=== PATIENT | female | born 1930 | race Caucasian/White ===

== ENCOUNTER 2016-05-28 10:36 | Emergency (ER) | payer OTHER ==
--- NOTE | 2016-05-28 11:34 | PROVIDER DOCUMENTATION ---
HPI-Musculoskeletal Pain/Inj - GENERAL Chief Complaint: Weakness Stated Complaint: right arm numbness Time Seen by Provider: 05/28/16 11:03 Source: patient - HX OF PRESENT ILLNESS-MUSKULOSKELTAL Nature of Presenting Problem: Pt is 85 y/o F presents to the ED with R wrist pain. Pt states pain radiates up R arm. Pt denies injury or trauma. Pt states pain has been presents for 2 days but worsened last night. Quality of Pain: reports: aching Severity in ED: mild Onset/Duration: 2 days ago, last night (worse) Timing: still present Modifying Factors: improves with: nothing Any recent injury?: No Locality of Occurance: Home Similar Symptoms Previously?: Yes Recently seen or treated by another doctor?: No - FALL INJURY Location of Pain/Injury: reports: none - UPPER EXTREMITY PAIN/INJURY Extremities Pain Location: wrist: right (pain ) Context / Method of Injury: reports: unknown Associated Symptoms: reports: numbness in upper ext (R arm), weakness in upper ext (R arm). denies: muscle spasms, sensory/motor loss, tingling in upper ext Review of Systems - Adult - REVIEW OF SYSTEMS - ADULT Constitutional: denies: chills, fever Eyes: denies: blurred vision, double vision Ears, Nose, Mouth & Throat: denies: ear pain, nose pain, throat pain Cardiovascular: denies: chest pain, heart murmur, irregular heart rate Respiratory: denies: cough, shortness of breath, wheezing Gastrointestinal: denies: abdominal pain, diarrhea, nausea, vomiting Genitourinary: denies: dysuria, hematuria Musculoskeletal: reports: other (R wrist pain). denies: bone pain, joint pain, neck pain Integumentary: denies: hives, itching Neurological: denies: dizziness/vertigo, headache/migraines Psychiatric: reports: no symptoms reported Endocrine: reports: no symptoms reported Hematologic/Lymphatic: reports: no symptoms reported Allergic/Immunologic: reports: no symptoms reported All Other Systems: Reviewed and Negative Past History - Adult - PAST MEDICAL HISTORY-ADULT Review of Records: reports: Nursing Assessment Review, Medications Reviewed, Social history reviewed & non-contributory. Major Childhood Illnesses: reports: denies history Cardiovascular: reports: cardiac disease, A-Fib, HTN, [place], pacemaker Respiratory: reports: COPD, pneumonia Gastrointestinal: reports: GERD Obstetrical/Gynecological: reports: denies history Genitourinary: reports: denies history Musculoskeletal: reports: denies history Neurological: reports: CVA Endocrine/Immune: reports: Diabetes, thyroid disorder Other Conditions: reports: denies history - PRIOR SURGERIES/PROCEDURES Surgical/Procedure History: reports: CABG, pacemaker, hysterectomy, other ( heart cath ) - IMMUNIZATION STATUS Childhood Immunizations: See Nurse Assessment Flu Vaccine: See Nurse Assessment - FAMILY HISTORY Family History: reviewed, not pertinent - SOCIAL HISTORY Smoking: denies Substance Use: denies Living Situation: care facility (detention) Physical Exam-Injury Related - Physical Exam-Injury Related Initial Vital Signs Reviewed: Yes General Appearance: appears well, alert, no apparent distress Eyes: PERRL/EOMI, pink conjunctivae, fundi clear, no AV nicking Head, Ears, Nose, Mouth & Throat: normocephalic/atraumatic, moist mucous membranes, normal ENT inspection, TMs normal, pharynx normal Neck: non-tender, full range of motion, supple, normal inspection Respiratory: chest non-tender, lungs clear, normal breath sounds, no pleuratic chest pain, no respiratory distress, no accessory muscle use Cardiovascular: normal peripheral pulses, regular rate, rhythm, no edema, no gallop, no JVD, no murmur Abdominal Exam: normal bowel sounds, non tender, soft, no organomegaly, no pulsatile mass Lymphatic: no adenopathy Back Exam: normal inspection, no CVA tenderness, no vertebral tenderness Extremity: normal gait, no pedal edema, no calf tenderness, swelling (R wrist) , tenderness (R wrist tenderness). negative: normal range of motion (limited ROM) Integumentary: normal color, warm/dry, erythema (R wrist) Neurologic: cashier ticket selling II-XII nml as tested, grossly normal, no motor/sensory deficits Psych/Mental Status: normal mood/affect, normal thought content, normal thought process, oriented x 3 Progress - PLAN OF CARE/RESULTS Progress/Plan/Lab Results: Orders Category Date Time Status CHEST-2 VIEWS [RAD] Stat Exams 05/28/16 11:05 Taken CBC WITH DIFF [HEME] Stat Lab 05/28/16 11:04 Ordered COMPREHENSIVE METABOLIC PANEL [CHEM] Stat Lab 05/28/16 11:05 Ordered SED RATE [HEME] Stat Lab 05/28/16 11:05 Ordered TROPONIN T Stat Lab 05/28/16 11:05 Ordered EKG [EKG] Stat Ther 05/28/16 11:05 Ordered Vital Signs - 24 hr 05/28/16 10:39 Temperature 97.9 F Pulse Rate 65 Respiratory 12 Rate Blood Pressure 138/109 O2 Sat by Pulse 99 Oximetry Laboratory Tests 05/28/16 11:37 WBC 10.74 RBC 4.89 Hgb 13.9 Hct 42.2 MCV 86.3 MCH 28.4 MCHC 32.9 L RDW Std Deviation 13.9 Plt Count 192 MPV 10.7 H Immature Gran % (Auto) 0.4 Neut % (Auto) 64.7 Lymph % (Auto) 25.2 [place] % (Auto) 8.4 Eos % (Auto) 1.1 Baso % (Auto) 0.2 Immature Gran # (Auto) 0.04 Neut # (Auto) 6.95 H Lymph # (Auto) 2.71 [place] # (Auto) 0.90 H Eos # (Auto) 0.12 Baso # (Auto) 0.02 Laboratory Tests 05/28/16 05/28/16 05/28/16 11:37 11:37 11:37 WBC 10.74 RBC 4.89 Hgb 13.9 Hct 42.2 MCV 86.3 MCH 28.4 MCHC 32.9 L RDW Std Deviation 13.9 Plt Count 192 MPV 10.7 H Immature Gran % (Auto) 0.4 Neut % (Auto) 64.7 Lymph % (Auto) 25.2 [place] % (Auto) 8.4 Eos % (Auto) 1.1 Baso % (Auto) 0.2 Immature Gran # (Auto) 0.04 Neut # (Auto) 6.95 H Lymph # (Auto) 2.71 [place] # (Auto) 0.90 H Eos # (Auto) 0.12 Baso # (Auto) 0.02 Sodium 140 Potassium 3.6 Chloride 100 Carbon Dioxide 31 Anion Gap 9 BUN 22 Creatinine 1.2 H Estimated GFR/1.73 m2 42 BUN/Creatinine Ratio 18 Glucose 190 H Calculated Osmolality 288 Calcium 9.0 Total Bilirubin 0.50 AST 15 ALT 16 Alkaline Phosphatase 57 Troponin T < 0.010 Total Protein 6.2 L Albumin 3.8 Globulin 2.0 Albumin/Globulin Ratio 2.0 Laboratory Tests 05/28/16 05/28/16 05/28/16 11:37 11:37 11:37 WBC 10.74 RBC 4.89 Hgb 13.9 Hct 42.2 MCV 86.3 MCH 28.4 MCHC 32.9 L RDW Std Deviation 13.9 Plt Count 192 MPV 10.7 H Immature Gran % (Auto) 0.4 Neut % (Auto) 64.7 Lymph % (Auto) 25.2 [place] % (Auto) 8.4 Eos % (Auto) 1.1 Baso % (Auto) 0.2 Immature Gran # (Auto) 0.04 Neut # (Auto) 6.95 H Lymph # (Auto) 2.71 [place] # (Auto) 0.90 H Eos # (Auto) 0.12 Baso # (Auto) 0.02 ESR Sodium 140 Potassium 3.6 Chloride 100 Carbon Dioxide 31 Anion Gap 9 BUN 22 Creatinine 1.2 H Estimated GFR/1.73 m2 42 BUN/Creatinine Ratio 18 Glucose 190 H Calculated Osmolality 288 Calcium 9.0 Total Bilirubin 0.50 AST 15 ALT 16 Alkaline Phosphatase 57 Troponin T < 0.010 Total Protein 6.2 L Albumin 3.8 Globulin 2.0 Albumin/Globulin Ratio 2.0 05/28/16 11:37 WBC RBC Hgb Hct MCV MCH MCHC RDW Std Deviation Plt Count MPV Immature Gran % (Auto) Neut % (Auto) Lymph % (Auto) [place] % (Auto) Eos % (Auto) Baso % (Auto) Immature Gran # (Auto) Neut # (Auto) Lymph # (Auto) [place] # (Auto) Eos # (Auto) Baso # (Auto) ESR 11 Sodium Potassium Chloride Carbon Dioxide Anion Gap BUN Creatinine Estimated GFR/1.73 m2 BUN/Creatinine Ratio Glucose Calculated Osmolality Calcium Total Bilirubin AST ALT Alkaline Phosphatase Troponin T Total Protein Albumin Globulin Albumin/Globulin Ratio Laboratory Tests 05/28/16 05/28/16 05/28/16 11:37 11:37 11:37 WBC 10.74 RBC 4.89 Hgb 13.9 Hct 42.2 MCV 86.3 MCH 28.4 MCHC 32.9 L RDW Std Deviation 13.9 Plt Count 192 MPV 10.7 H Immature Gran % (Auto) 0.4 Neut % (Auto) 64.7 Lymph % (Auto) 25.2 [place] % (Auto) 8.4 Eos % (Auto) 1.1 Baso % (Auto) 0.2 Immature Gran # (Auto) 0.04 Neut # (Auto) 6.95 H Lymph # (Auto) 2.71 [place] # (Auto) 0.90 H Eos # (Auto) 0.12 Baso # (Auto) 0.02 ESR Sodium 140 Potassium 3.6 Chloride 100 Carbon Dioxide 31 Anion Gap 9 BUN 22 Creatinine 1.2 H Estimated GFR/1.73 m2 42 BUN/Creatinine Ratio 18 Glucose 190 H Calculated Osmolality 288 Uric Acid Calcium 9.0 Total Bilirubin 0.50 AST 15 ALT 16 Alkaline Phosphatase 57 Creatine Kinase Troponin T < 0.010 Total Protein 6.2 L Albumin 3.8 Globulin 2.0 Albumin/Globulin Ratio 2.0 05/28/16 05/28/16 05/28/16 11:37 11:37 13:55 WBC RBC Hgb Hct MCV MCH MCHC RDW Std Deviation Plt Count MPV Immature Gran % (Auto) Neut % (Auto) Lymph % (Auto) [place] % (Auto) Eos % (Auto) Baso % (Auto) Immature Gran # (Auto) Neut # (Auto) Lymph # (Auto) [place] # (Auto) Eos # (Auto) Baso # (Auto) ESR 11 Sodium Potassium Chloride Carbon Dioxide Anion Gap BUN Creatinine Estimated GFR/1.73 m2 BUN/Creatinine Ratio Glucose Calculated Osmolality Uric Acid 7.4 H Calcium Total Bilirubin AST ALT Alkaline Phosphatase Creatine Kinase 33 Troponin T Total Protein Albumin Globulin Albumin/Globulin Ratio 05/28/16 13:55 WBC RBC Hgb Hct MCV MCH MCHC RDW Std Deviation Plt Count MPV Immature Gran % (Auto) Neut % (Auto) Lymph % (Auto) [place] % (Auto) Eos % (Auto) Baso % (Auto) Immature Gran # (Auto) Neut # (Auto) Lymph # (Auto) [place] # (Auto) Eos # (Auto) Baso # (Auto) ESR Sodium Potassium Chloride Carbon Dioxide Anion Gap BUN Creatinine Estimated GFR/1.73 m2 BUN/Creatinine Ratio Glucose Calculated Osmolality Uric Acid Calcium Total Bilirubin AST ALT Alkaline Phosphatase Creatine Kinase Troponin T < 0.010 Total Protein Albumin Globulin Albumin/Globulin Ratio - EKG 1 Time of EKG reading by physician:: 13:05 EKG Read and Signed by:: Francisco J Carmona EKG Interpretation (*Must complete 3 of following elements*): Abnormal Rate: 65 Rhythm: ventricular paced rhythm Comments: abnormal ECG 2 Time of EKG reading by physician:: 14:50 EKG Read and Signed by:: Francisco J Carmona EKG Interpretation (*Must complete 3 of following elements*): Abnormal Rate: 65 Rhythm: ventricular paced rhythm Comments: abnormal ECG - XRAY 1 XRAY: Bilateral XRAY Study: Chest Impression: Abnormal XRAY Interpretation: CM; pacemaker per Dr. Carmona Departure - Departure Time of Disposition Order: 17:30 DIAGNOSIS: Gout Qualifiers: Gout site: wrist Gout etiology: unspecified cause Laterality: right Chronicity : acute Qualified Code(s): M10.9 - Gout, unspecified Disposition: HOME 01 Certified Medical Emergency: Emergent Condition: Stable Additional Instructions: ED Follow Up Instructions: You have been treated by a care provider in the Emergency Department. These instructions are being provided to you so you can have an understanding of how to care for yourself upon discharge. Upon discharge from the Emergency Department, you are responsible for making arrangements for follow-up care by a physician of your choice. Take all prescribed medications as directed. Return to the Emergency Department immediately for any new or worsening symptoms. You may call the Physician Referral phone number at [phone] to obtain a list of Physicians who are taking new patients. Referrals: Boby Aguilar [Primary Care Provider] - Instructions: Musculoskeletal Pain, Gout Attestation - Scribe Verification/Attestation Scribe:: Niru Solis Acting as Scribe for:: Francisco J Carmona Scribe documention review:: This chart was documented by a scribe and accurately reflects the service the provider performed and the decisions made by the provider.
[2016-05-28 11:44] LABS: MANUAL DIFF NEEDED? NO
[2016-05-28 11:47] LABS: BASO% 0.2 % (0.0-0.8); EOS# 0.12 X1000 (0.0-0.7); EOS% 1.1 % (0.0-10.0); HEMATOCRIT 42.2 % (37.0-47.0); HEMOGLOBIN 13.9 g/dL (12.0-16.0); IMM GRAN# 0.04 X1000 (0.0-0.04); IMM GRAN% 0.4 % (0.0-0.5); LYMPH# 2.71 X1000 (1.2-3.4); LYMPH% 25.2 % (20.5-51.1); MCH 28.4 PG (27-31); MCHC 32.9 g/dL (33-37); MCV 86.3 FL (81-99); MONO% 8.4 % (1.7-9.3); MPV 10.7 FL (7.4-10.4); NEUT% 64.7 % (42.2-75.2); PLT 192 X1000 (130-400); RBC 4.89 XMIL (4.2-5.4)
[2016-05-28 12:09] LABS: ALBUMIN 3.8 g/dL (3.5-5.0); POTASSIUM 3.6 mmol/L (3.5-5.1); TOTAL BILIRUBIN 0.5 mg/dL (0.20-1.00); TOTAL PROTEIN 6.2 g/dL (6.3-8.3)
--- NOTE | 2016-05-28 13:22 | EKG Report ---
Test Performed on : 05/28/2016 1:05:10 PM Test Reason : sob Blood Pressure : / mmHG Vent. Rate : 065 BPM Atrial Rate : 068 BPM P-R Int : 000 ms QRS Dur : 180 ms QT Int : 562 ms P-R-T Axes : 000 042 108 degrees QTc Int : 584 ms Ventricular-paced rhythm Abnormal ECG When compared with ECG of 28-MAY-2016 12:58, (Unconfirmed) Electronic ventricular pacemaker has replaced Sinus rhythm. Vent. rate has decreased BY 74 BPM Unconfirmed Result
--- NOTE | 2016-05-28 13:26 | Diag Imaging Result Document ---
PROCEDURE NAME: CHEST-2 VIEWS - 05/28/2016 CHEST, 2 VIEWS: COMPARISON: 02/17/2016. FINDINGS: There is stable borderline cardiomegaly. There are prostatic mitral valve and transvenous cardiac pacemaker again seen. The lungs appear clear. There is no substantial vascular congestion, pleural effusion, or pneumothorax identified. There is old anterior wedge deformity of the L1 vertebral body noted. IMPRESSION: Stable mild cardiomegaly. No evidence of acute disease.
[2016-05-28] MEDS ORDERED: DEPO-MEDROL IM ONE (14:47)
[2016-05-28 14:48] VITALS: BP 166/81
--- NOTE | 2016-05-28 16:52 | EKG Report ---
Test Performed on : 05/28/2016 2:50:28 PM Test Reason : sob Blood Pressure : / mmHG Vent. Rate : 065 BPM Atrial Rate : 050 BPM P-R Int : 000 ms QRS Dur : 176 ms QT Int : 544 ms P-R-T Axes : 000 046 100 degrees QTc Int : 565 ms Ventricular-paced rhythm Abnormal ECG When compared with ECG of 28-MAY-2016 13:05, (Unconfirmed) No significant change was found Unconfirmed Result
== END 2016-05-28 17:20 | disposition home or self-care (01) ==
LOC: P.ED 10:36
DX: M10.9 Gout, unspecified (principal); R94.31 Abnormal electrocardiogram [ECG] [EKG]; M25.531 Pain in right wrist; M79.601 Pain in right arm; R20.0 Anesthesia of skin; M62.81 Muscle weakness (generalized); M25.431 Effusion, right wrist; L53.9 Erythematous condition, unspecified; Z79.899 Other long term (current) drug therapy; I48.91 Unspecified atrial fibrillation; I10 Essential (primary) hypertension; I25.2 Old myocardial infarction; J44.9 Chronic obstructive pulmonary disease, unspecified; E11.9 Type 2 diabetes mellitus without complications; Z79.01 Long term (current) use of anticoagulants; Z79.4 Long term (current) use of insulin; Z86.73 Personal history of transient ischemic attack (TIA), and cerebral infarction without residual deficits; Z95.1 Presence of aortocoronary bypass graft; Z95.0 Presence of cardiac pacemaker
CPT/HCPCS: 36415; 71020; 80053; 82550; 82948; 84484; 84550; 85025; 85651; 93005; 96372; J1030

== ENCOUNTER 2016-07-28 20:23 | Inpatient (IN) ==
[2016-07-28 21:03] LABS: BASO% 0.1 % (0.0-0.8); EOS# 0.03 X1000 (0.0-0.7); EOS% 0.1 % (0.0-10.0); HEMATOCRIT 36.4 % (37.0-47.0); HEMOGLOBIN 12.1 g/dL (12.0-16.0); IMM GRAN# 0.09 X1000 (0.0-0.04); IMM GRAN% 0.4 % (0.0-0.5); LYMPH# 1.55 X1000 (1.2-3.4); LYMPH% 7.7 % (20.5-51.1); MANUAL DIFF NEEDED? YES; MCHC 33.2 g/dL (33-37); MCV 87.3 FL (81-99); MONO# 1.51 X1000 (0.11-0.59); MONO% 7.5 % (1.7-9.3); MPV 11.1 FL (7.4-10.4); NEUT% 84.2 % (42.2-75.2); PLT 215 X1000 (130-400); RBC 4.17 XMIL (4.2-5.4)
[2016-07-28] MEDS ORDERED: DUONEB (A & A) INH ONE (21:03)
--- NOTE | 2016-07-28 21:09 | PROVIDER DOCUMENTATION ---
HPI-Respiratory General - General Chief Complaint: Shortness of Breath Stated Complaint: COUGH,SOB Time Seen by Provider: 07/28/16 20:40 Source: patient Allergies/Adverse Reactions: Patient Allergies Allergy/AdvReac Type Severity Reaction Status Date / Time Iodinated Contrast Media - Allergy Severe ANAPHYLAXIS Verified 07/28/16 20:30 Oral and codeine [Codeine] Allergy Mild NAUSEA/VOMI Verified 07/28/16 20:30 TING Home Medications: Home Medication List Medication Instructions Recorded Confirmed Last Taken Type Acetaminophen [Tylenol] 650 mg PO Q6H PRN PRN 09/08/12 07/28/16 09/08/12 22:00 History Hydralazine [Apresoline] 100 mg PO BID 09/08/12 07/28/16 09/14/15 20:30 History 100 Rivaroxaban [Xarelto] 15 mg PO HS 01/19/13 07/28/16 09/13/15 20:30 History 15 Insulin Glargine [Lantus] 25 unit SUBQ BID 08/10/15 07/28/16 09/14/15 20:30 History 25 Insulin Lispro [Humalog] 5 unit SQ BID 08/10/15 07/28/16 09/14/15 08:30 History 5 Lactobac Cmb #3/Fos/Pantethine 1 each PO BID 08/10/15 07/28/16 09/13/15 16:30 History [Probiotic & Acidophilus Cap] 1 Trolamine Salicylate/Aloe Vera 1 applic TP DIRECTED PRN PRN 08/10/15 Unknown History [Aspercreme 10% Cream] Albuterol Sulfate Inhaler 2 puff INH Q4H PRN PRN #1 inhaler 08/14/15 07/28/16 Unknown Rx [Ventolin Hfa] Prednisone 10 mg PO DAILY #30 tablet 02/22/16 07/28/16 Unknown Rx Guaifenesin [Mucinex] 600 mg PO BID 05/28/16 07/28/16 Unknown History Loratadine [Claritin] 10 mg PO QHS #30 tablet 06/20/16 07/28/16 Unknown Rx Isosorbide Dinitrate 40 mg PO DAILY 07/28/16 07/28/16 Unknown History Sennosides/Docusate Sodium [Senna 1 tab PO BID 07/28/16 07/28/16 Unknown History S Tablet] - History of Present Illness-Resp Nature of Presenting Problem: 85 y/o WF presents to the ED with c/o cough, SOB, CP x 4-5 days. States that she is staying at [facility]. Reports cough is productive of yellow/brown mucus. Denies any other sxs. Review of Systems - Adult - REVIEW OF SYSTEMS - ADULT Constitutional: reports: no symptoms reported. denies: chills, fever Eyes: reports: no symptoms reported. denies: blurred vision, double vision Ears, Nose, Mouth & Throat: reports: no symptoms reported. denies: ear pain, nose pain Cardiovascular: reports: see HPI, chest pain. denies: palpitations Respiratory: reports: see HPI, cough, shortness of breath Gastrointestinal: reports: no symptoms reported. denies: nausea, vomiting Genitourinary: reports: no symptoms reported. denies: dysuria, frequency Musculoskeletal: reports: no symptoms reported. denies: joint pain, joint swelling Integumentary: reports: no symptoms reported. denies: nail changes, rash Neurological: reports: no symptoms reported. denies: headache/migraines, numbness, paresthesia Psychiatric: reports: no symptoms reported Endocrine: reports: no symptoms reported. denies: cold intolerance, heat intolerance Hematologic/Lymphatic: reports: no symptoms reported. denies: easy bruising, prolonged bleeding Allergic/Immunologic: reports: no symptoms reported All Other Systems: Reviewed and Negative Past History - Adult - PAST MEDICAL HISTORY-ADULT Review of Records: reports: Nursing Assessment Review, Medications Reviewed Major Childhood Illnesses: reports: denies history Cardiovascular: reports: cardiac disease, A-Fib, HTN, [place], pacemaker Respiratory: reports: COPD, pneumonia Gastrointestinal: reports: GERD Obstetrical/Gynecological: reports: denies history Genitourinary: reports: denies history Musculoskeletal: reports: denies history Neurological: reports: CVA Endocrine/Immune: reports: Diabetes, thyroid disorder Other Conditions: reports: denies history - PRIOR SURGERIES/PROCEDURES Surgical/Procedure History: reports: CABG, pacemaker, hysterectomy, other ( heart cath ) - IMMUNIZATION STATUS Childhood Immunizations: See Nurse Assessment Flu Vaccine: See Nurse Assessment - FAMILY HISTORY Family History: reviewed, not pertinent - SOCIAL HISTORY Smoking: denies Alcohol Use Frequency: never Living Situation: care facility Physical Exam-General - PHYSICAL EXAM-ADULT Initial Vital Signs Reviewed: Yes - CONSTITUTIONAL General Appearance: alert, moderate distress - EYES Eyes: pink conjunctivae - HEAD, EARS, NOSE, MOUTH & THROAT HENMT: normocephalic/atraumatic, moist mucous membranes, pharynx normal - NECK Neck: supple, normal inspection - RESPIRATORY Respiratory: decreased breath sounds, wheezing, increased rate. negative: crackles, rales, stridor - CARDIOVASCULAR Cardiovascular: regular rate, rhythm. negative: bradycardia, tachycardia - LYMPHATIC Lymphatic: no adenopathy - MUSCULOSKELETAL Back Exam: normal inspection Extremity: normal gait - SKIN Integumentary: normal color, normal turgor - NEUROLOGIC Neurologic: negative: aphasia - PSYCHIATRIC Psych/Mental Status: normal mood/affect Progress - PLAN OF CARE/RESULTS Progress/Plan/Lab Results: Vital Signs - 8 hr 07/28/16 20:25 07/28/16 21:15 07/28/16 21:50 Temperature 100.1 F H Pulse Rate 65 69 65 Respiratory Rate 20 18 22 Blood Pressure 165/90 144/87 O2 Sat by Pulse Oximetry 99 97 99 07/28/16 21:52 07/28/16 22:45 Temperature 99.2 F Pulse Rate 65 Respiratory Rate 22 Blood Pressure 123/70 O2 Sat by Pulse Oximetry 100 Laboratory Results - last 24 hr 07/28/16 07/28/16 07/28/16 20:40 20:40 20:40 WBC RBC Hgb Hct MCV MCH MCHC RDW Std Deviation Plt Count MPV Immature Gran % (Auto) Neut % (Auto) Lymph % (Auto) [place] % (Auto) Eos % (Auto) Baso % (Auto) Immature Gran # (Auto) Neut # (Auto) Lymph # (Auto) [place] # (Auto) Eos # (Auto) Baso # (Auto) Segmented Neutrophils Lymphocytes Monocytes D-Dimer Sodium 135 L Potassium 3.4 L Chloride 95 L Carbon Dioxide 27 Anion Gap 13 BUN 15 Creatinine 1.0 H Estimated GFR/1.73 m2 52 BUN/Creatinine Ratio 15 Glucose 144 H Calculated Osmolality 273 Calcium 8.5 L Total Bilirubin 0.70 AST 21 ALT 21 Alkaline Phosphatase 78 Creatine Kinase Troponin T [id number] Pept 1482 H Total Protein 6.7 Albumin 3.4 L Globulin 3.0 Albumin/Globulin Ratio 1.0 Plasma Lactate 1.1 07/28/16 07/28/16 07/28/16 20:40 20:40 20:40 WBC 20.10 H RBC 4.17 L Hgb 12.1 Hct 36.4 L MCV 87.3 MCH 29.0 MCHC 33.2 RDW Std Deviation 13.0 Plt Count 215 MPV 11.1 H Immature Gran % (Auto) 0.4 Neut % (Auto) 84.2 H Lymph % (Auto) 7.7 L [place] % (Auto) 7.5 Eos % (Auto) 0.1 Baso % (Auto) 0.1 Immature Gran # (Auto) 0.09 H Neut # (Auto) 16.89 H Lymph # (Auto) 1.55 [place] # (Auto) 1.51 H Eos # (Auto) 0.03 Baso # (Auto) 0.03 Segmented Neutrophils 88 H Lymphocytes 8 L Monocytes 4 D-Dimer Sodium Potassium Chloride Carbon Dioxide Anion Gap BUN Creatinine Estimated GFR/1.73 m2 BUN/Creatinine Ratio Glucose Calculated Osmolality Calcium Total Bilirubin AST ALT Alkaline Phosphatase Creatine Kinase 129 Troponin T 0.010 Lfq-[id number]-[id number] Pept Total Protein Albumin Globulin Albumin/Globulin Ratio Plasma Lactate 07/28/16 20:40 WBC RBC Hgb Hct MCV MCH MCHC RDW Std Deviation Plt Count MPV Immature Gran % (Auto) Neut % (Auto) Lymph % (Auto) [place] % (Auto) Eos % (Auto) Baso % (Auto) Immature Gran # (Auto) Neut # (Auto) Lymph # (Auto) [place] # (Auto) Eos # (Auto) Baso # (Auto) Segmented Neutrophils Lymphocytes Monocytes D-Dimer 0.32 Sodium Potassium Chloride Carbon Dioxide Anion Gap BUN Creatinine Estimated GFR/1.73 m2 BUN/Creatinine Ratio Glucose Calculated Osmolality Calcium Total Bilirubin AST ALT Alkaline Phosphatase Creatine Kinase Troponin T Cpl-L-Iktoqlggteb Pept Total Protein Albumin Globulin Albumin/Globulin Ratio Plasma Lactate Orders Category Date Time Status Admit - [facility] Routine AdmDCTranf 07/28/16 22:38 Ordered Call Admitting on Arrival AT ADMISSION Care 07/28/16 22:40 Completed Neurological Check PRN Care 07/28/16 22:38 Active Saline Loc NOW Care 07/28/16 20:41 Active Saline Loc NOW Care 07/28/16 22:36 Completed Vital Signs Order ROUTINE Care 07/28/16 22:38 Completed Diabetic Diet Diet 07/28/16 22:40 Active CHEST-2 VIEWS [RAD] Stat Exams 07/28/16 20:41 Taken BLOOD CULTURE [BLDCUL] Stat Lab 07/28/16 20:47 Results CBC WITH DIFF [HEME] Stat Lab 07/28/16 20:40 Completed CK PROFILE [SP CHEM] Stat Lab 07/28/16 20:40 Completed COMPREHENSIVE METABOLIC PANEL [CHEM] Stat Lab 07/28/16 20:40 Completed Ddimer [D-DIMER PL] [COAG] Stat Lab 07/28/16 20:40 Completed LACTATE, PLASMA [CHEM] Stat Lab 07/28/16 20:40 Completed PRO B-NATRIURETIC PEPTIDE Stat Lab 07/28/16 20:40 Completed TROPONIN T Stat Lab 07/28/16 20:40 Completed 0.9% Sodium Chloride Inj [Ns] 1,000 ml Med 07/28/16 21:11 Active IV 75 mls/hr 0.9% Sodium Chloride Inj [Ns] 1,000 ml Med 07/28/16 22:38 Active IV 75 mls/hr Albuterol 2.5MG/Ipratrop 0.5MG [Duoneb (A & A)] Med 07/28/16 21:03 Discontinued 3 ml INH NOW ONE Albuterol 2.5MG/Ipratrop 0.5MG [Duoneb (A & A)] Med 07/28/16 23:30 Active 3 ml INH RTQ4H CefTRIAXONE 1 GM/NS [Rocephin 1 gm/Ns] Med 07/28/16 22:34 Discontinued 1 gm in 50 ml IV NOW Aerosol Treatments Routine Oth 07/28/16 21:03 Completed Aerosol Treatments Routine Oth 07/28/16 22:37 Active Aerosol Treatments Stat Oth 07/28/16 21:03 Completed Aerosol Treatments Stat Oth 07/28/16 22:37 Active Telemetry [OM.EQ] Routine Oth 07/28/16 22:38 Active Transfer/Admit Order [TRANSFER] Routine Transfer 07/28/16 22:41 Com[address] Discuss[address] pt with Dr. Woodruff; he agreed with admision Result Diagrams: 07/28/16 20:40 07/28/16 20:40 - XRAY 1 XRAY Study: Chest XRAY Interpretation: RLL infiltrate - CONSULTS/PCP/HOSPITALIST Notification #1 *Consult/PCP/Hospitalist*: Dr. best Time Discussed: 22:34 Reason/Comments: PNA, leukocytosis Consult Disposition: Admit (breathing tx and Abx) Departure - Departure Time of Disposition Decision: 22:31 DIAGNOSIS: Pulmonary fibrosis, COPD exacerbation COPD (chronic obstructive pulmonary disease) Qualifiers: COPD type: unspecified COPD Qualified Code(s): J44.9 - Chronic obstructive pulmonary disease, unspecified Disposition: ADMITTED INPATIENT 09 Certified Medical Emergency: Emergent Condition: Stable - Critical Care Note This patient required my direct & personal management of CC.: No Attestation - Physician/ PIERCE Attestation Patient care was provided by Advanced Practice Provider:: Yes Advanced Practice Provider:: Ольга Ramirez Advanced Practice Provider documentation review:: The Mid-level provider documentation, treatment plan and medical decision making was reviewed by the physician who agrees with all treatment and medical decision making by the MLP.
[2016-07-28 21:15] LABS: LYMPHS 8 % (21-51); MONO 4 % (1-9)
[2016-07-28 21:26] LABS: ALBUMIN 3.4 g/dL (3.5-5.0); CALCIUM 8.5 mg/dL (8.8-10.2); POTASSIUM 3.4 mmol/L (3.5-5.1); TOTAL BILIRUBIN 0.7 mg/dL (0.20-1.00); TOTAL PROTEIN 6.7 g/dL (6.3-8.3)
[2016-07-28] MEDS: NS 1,000 ML IV ONE (21:49)
[2016-07-28] MEDS ORDERED: ROCEPHIN 1 GM/NS 1 GM/50 ML IVPB IV ONE (22:34)
[2016-07-28] MEDS ORDERED: LEVAQUIN 750 MG in NS 150 ML IV ONE (22:34)
[2016-07-28] MEDS ORDERED: NS 1,000 ML IV ONE (22:38)
[2016-07-28] MEDS ORDERED: LEVAQUIN 750 MG/D5W 750 MG/150 ML IVPB IV ONE (23:00)
[2016-07-28] MEDS: DUONEB (A & A) INH SCH (23:59)
[2016-07-29] MEDS: NS 1,000 ML IV ONE (00:23)
[2016-07-29] MEDS: DUONEB (A & A) INH SCH ×6 (03:38→23:02)
[2016-07-29] MEDS ORDERED: ZOFRAN IV PRN ×2 (06:23→08:13)
[2016-07-29 07:31] LABS: HEMOGLOBIN 10.8 g/dL (12.0-16.0); MCHC 32.7 g/dL (33-37); MCV 88.5 FL (81-99); MPV 10.8 FL (7.4-10.4); RBC 3.73 XMIL (4.2-5.4)
[2016-07-29 07:58] LABS: ALBUMIN 3.1 g/dL (3.5-5.0); POTASSIUM 3.4 mmol/L (3.5-5.1); TOTAL BILIRUBIN 0.7 mg/dL (0.20-1.00)
[2016-07-29] MEDS ORDERED: TYLENOL PO PRN (08:13)
--- NOTE | 2016-07-29 08:19 | Diag Imaging Result Document ---
PROCEDURE NAME: CHEST-2 VIEWS - 07/28/2016 FRONTAL AND LATERAL CHEST, TWO VIEWS: COMPARISON: 06/20/2016. 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 The heart is mildly prominent. The patient has a right sided pacemaker. There are increased interstitial markings representing mild pulmonary edema or fibrosis. No pleural effusions. IMPRESSION: Stable chest.
[2016-07-29] MEDS ORDERED: INSULIN LISPRO 5 UNIT SQ SCH (09:00)
--- NOTE | 2016-07-29 09:13 | HISTORY AND PHYSICAL ---
CHIEF COMPLAINT: Cough. HISTORY OF PRESENT ILLNESS: The patient is an 85-year-old female, who presented to [facility] last night with increased cough, congestion, shortness of breath, increased work of breathing. Notes that she has been feeling tired, fatigued and sick for the past 2 or 3 days. She has had a cough with brownish sputum. She has also had a sore throat off and on for a week. States she is not on oxygen at home chronically. Her cough continued to worsen, therefore, she came to the emergency department. ALLERGIES: Iodine, codeine. MEDICATIONS: Tylenol, hydralazine 100 b.i.d., Xarelto 15 at bedtime, Lantus 25 b.i.d., Humalog 5 b.i.d., probiotics, Ventolin inhaler. Prednisone 10 daily, guaifenesin, Claritin, isosorbide. PAST MEDICAL HISTORY: Significant for diabetes, COPD, atrial fibrillation, hypertension, known coronary artery disease with a history of [place]. History of pacemaker placement. Chronic reflux. Previous history pneumonia, hypothyroidism, history of stroke. She has had a CABG and a pacemaker placement in the past. She has had a hysterectomy. REVIEW OF SYSTEMS: As noted above. The patient denies any fevers or chills, but does states that she frequently has been hot or cold. She has not checked her temperature. Has had a productive cough with greenish sputum for the last couple of days. Denies any chest pain, palpitations. Denies any headaches blurred vision, change in vision. Notes that she is chronically tired and fatigued. Denies any focalized weakness. Denies any GI or issues otherwise. PHYSICAL EXAMINATION: VITAL SIGNS: Temperature 100.1, pulse 65, respiratory rate 20, BP 165/90, saturation 99% on room air. GENERAL: The patient is awake and alert. She is oriented. Speech appears somewhat pressured. She talks very fast. Memory appears intact. HEENT: Normocephalic, atraumatic. NECK: Supple. CV: Regular rate. CHEST: Decreased breath sounds bilaterally. Positive crackles. Positive rhonchi throughout. Occasional wheezing. ABDOMEN: Soft. EXTREMITIES: Moves all extremities. No edema. NEUROLOGIC: No focal changes. LABS: WBCs initially on admission to the hospital 20, currently 18. Sodium 134, potassium 3.4, creatinine 1.0, glucose 144. BNP 1482. First set of cardiac enzymes are negative. ASSESSMENT: 1. Pneumonia. 2. Chronic obstructive pulmonary disease with mild exacerbation. 3. Hypertension. 4. Fever secondary to pneumonia. 5. Hypothyroidism. 6. Hyponatremia. 7. Hypokalemia. 8. Diabetes. PLAN: We will admit patient to the hospital. Place her on a sliding scale insulin. Continue breathing treatments. Check blood culture. Sputum culture. Place her on a diabetic diet. Azithromycin, IV fluids, Rocephin. Restart her home medications and will follow. cc: Esequiel Yuen MD
[2016-07-29] MEDS: ZITHROMAX PO SCH (09:37)
[2016-07-29] MEDS: MUCINEX PO SCH ×2 (09:37→22:04)
[2016-07-29] MEDS: APRESOLINE PO SCH ×2 (09:37→22:04)
[2016-07-29] MEDS: CULTURELLE PO SCH ×2 (09:38→22:04)
[2016-07-29] MEDS: PERICOLACE PO SCH ×2 (09:38→22:04)
[2016-07-29] MEDS: PREDNISONE PO SCH (09:38)
[2016-07-29] MEDS: ISORDIL PO SCH (09:38)
[2016-07-29] MEDS: LANTUS INSULIN (PARKWAY) SUBQ SCH ×2 (09:39→22:05)
[2016-07-29] MEDS ORDERED: DUONEB (A & A) INH SCH (11:30)
[2016-07-29] MEDS: HUMALOG DOSE (PARKWAY) SUBQ SCH ×3 (11:37→22:05)
[2016-07-29] MEDS: TYLENOL PO PRN (12:31)
[2016-07-29] MEDS ORDERED: CALMOSEPTINE OINTMENT TOP PRN (14:18)
[2016-07-29] MEDS: XARELTO PO SCH (17:37)
[2016-07-29] MEDS: CLARITIN PO SCH (22:05)
[2016-07-29] MEDS: ROCEPHIN 1 GM/NS 1 GM/50 ML IVPB IV SCH (22:22)
[2016-07-30] MEDS: DUONEB (A & A) INH SCH ×6 (02:56→22:53)
[2016-07-30] MEDS: TYLENOL PO PRN ×3 (03:05→20:36)
[2016-07-30] MEDS: HUMALOG DOSE (PARKWAY) SUBQ SCH ×4 (06:30→20:38)
[2016-07-30 06:31] LABS: HEMATOCRIT 32.2 % (37.0-47.0); HEMOGLOBIN 10.5 g/dL (12.0-16.0); MCH 28.1 PG (27-31); MCHC 32.6 g/dL (33-37); MCV 86.1 FL (81-99); MPV 11.1 FL (7.4-10.4); RBC 3.74 XMIL (4.2-5.4)
[2016-07-30 06:52] LABS: CALCIUM 8.4 mg/dL (8.8-10.2); POTASSIUM 3.2 mmol/L (3.5-5.1)
[2016-07-30] MEDS: APRESOLINE PO SCH ×2 (08:43→20:36)
[2016-07-30] MEDS: ZITHROMAX PO SCH (08:43)
[2016-07-30] MEDS: MUCINEX PO SCH (08:43)
[2016-07-30] MEDS: PREDNISONE PO SCH (08:44)
[2016-07-30] MEDS: CULTURELLE PO SCH ×2 (08:44→20:37)
[2016-07-30] MEDS: PERICOLACE PO SCH ×2 (08:44→20:37)
[2016-07-30] MEDS: ISORDIL PO SCH (08:44)
--- NOTE | 2016-07-30 11:07 | PROGRESS NOTE ---
DATE: 07/30/2016 SUBJECTIVE: Patient notes that she is having a tremendous cough. She does not want to cough this much. She states that she does not want to take breathing treatments because they make her cough. OBJECTIVE: Vital Signs: Current temperature 98, maximum temperature 101 degrees earlier this morning. Pulse 66, respiratory rate 26, blood pressure 173/66 to 150/31, saturation 100% on 2L. General: Patient is awake, alert. She is currently in no respiratory distress, but she is ill appearing, does not feel well. States that it hurts to breathe, hurts to cough. HEENT: Normocephalic, atraumatic. Neck: Supple. Cardiovascular: Regular rate. Chest: Positive wheezing. Positive crackles in left lower lobe. Positive rhonchi throughout. Decreased breath sounds, but equal bilaterally. Abdomen: Soft. Extremities: Moves all extremities. LABORATORIES: WBC 16, hemoglobin and hematocrit 10 and 30. Sodium 132, potassium 3.2, creatinine 1.1. ASSESSMENT: 1. Hypocalcemia. 2. Hyperglycemia with known diabetes. Patient's blood sugars currently are stable. Will add Solu-Medrol and continue with sliding scale to see if this will help her lungs. 3. Chronic obstructive pulmonary disease with exacerbation. 4. Pneumonia. Patient actually had a fever last night. She has only been on antibiotics 24 hours. We will not change currently; however, certainly, if her fever continues we will need to add additional antibiotics. 5. Sepsis with fever and leukocytosis. 6. Leukocytosis. 7. Pneumonia causing sepsis, left lower lobe. 8. Hyponatremia. 9. Hypokalemia. PLAN: We will continue as noted above. Patient currently is on azithromycin and Rocephin. She has continued to have fever. If her fever continues, we will need to add further antibiotics. We will try to add chest percussion therapy. Will attempt to continue breathing treatments for pulmonary toilet, but not sure if Ms. Pandey will allow this. We will add Robitussin and follow. cc: Esequiel Yuen MD
[2016-07-30] MEDS: LANTUS INSULIN (PARKWAY) SUBQ SCH ×2 (11:11→20:37)
[2016-07-30] MEDS: XARELTO PO SCH (17:01)
[2016-07-30] MEDS: DUONEB (A & A) INH PRN (17:16)
[2016-07-30] MEDS: CLARITIN PO SCH (20:36)
[2016-07-30] MEDS: ROCEPHIN 1 GM/NS 1 GM/50 ML IVPB IV SCH (23:33)
[2016-07-31] MEDS: ROBITUSSIN-DM PO PRN (00:21)
[2016-07-31] MEDS: DUONEB (A & A) INH SCH ×6 (02:59→23:03)
[2016-07-31] MEDS: CLARITIN PO SCH ×2 (04:06→22:51)
[2016-07-31] MEDS: TYLENOL PO PRN ×2 (04:36→10:58)
[2016-07-31] MEDS: HUMALOG DOSE (PARKWAY) SUBQ SCH ×4 (06:14→22:50)
[2016-07-31 06:30] LABS: CALCIUM 8.4 mg/dL (8.8-10.2); TOTAL BILIRUBIN 0.5 mg/dL (0.20-1.00); TOTAL PROTEIN 5.8 g/dL (6.3-8.3)
[2016-07-31 06:47] LABS: HEMATOCRIT 30.7 % (37.0-47.0); MCHC 32.6 g/dL (33-37); MPV 11.3 FL (7.4-10.4); RBC 3.57 XMIL (4.2-5.4)
[2016-07-31] MEDS ORDERED: KLOR-CON PO ONE (08:17)
[2016-07-31] MEDS: APRESOLINE PO SCH ×2 (09:13→22:49)
[2016-07-31] MEDS: PREDNISONE PO SCH (09:14)
[2016-07-31] MEDS: PERICOLACE PO SCH ×2 (09:14→22:49)
[2016-07-31] MEDS: ZITHROMAX PO SCH (09:14)
[2016-07-31] MEDS: CULTURELLE PO SCH ×2 (09:14→22:49)
[2016-07-31] MEDS: ISORDIL PO SCH (09:14)
[2016-07-31] MEDS: LANTUS INSULIN (PARKWAY) SUBQ SCH ×2 (09:14→22:51)
--- NOTE | 2016-07-31 11:16 | PROGRESS NOTE ---
DATE: 07/31/2016 SUBJECTIVE: The patient notes that she is feeling better. She is still having a cough, still having shortness of breath. She is not able to get out of bed secondary to her cough. She had a very productive cough this morning but was unable to completely get the sputum up. PHYSICAL EXAMINATION: Vital Signs: Temperature 98, pulse 64, respiratory rate 16, BP 159/58, saturation 96% on 2 L. General: Patient is awake, alert. She is currently in no respiratory distress. She is feeling much better. HEENT: Normocephalic. Neck: Supple. CV: Regular rate. Chest: Positive wheezing. No apparent crackles. Positive rhonchi throughout. Better air movement today than yesterday's exam. Abdomen: Soft, obese. Extremities: Moves all extremities. No edema. Neurologic: No changes. Skin: Warm and dry. No rashes. DIAGNOSTIC DATA: WBCs 11.9. Sodium 127, potassium 3, creatinine 1, glucose 129, albumin 3. ASSESSMENT: 1. Mild protein calorie malnutrition. 2. Diabetes with mild hyperglycemia. 3. Hypocalcemia. 4. Hyponatremia. 5. Hypokalemia. 6. Leukocytosis, improved. 7. Sepsis, improving. 8. Pneumonia. 9. Hypothyroidism. 10. Fever, resolved. PLAN: We will continue patient on her current antibiotics as she is improving. We will replace her potassium. We will follow her sodium levels. Encourage p.o. Continue incentive spirometry as well as good pulmonary toilet. Further orders as needed. cc: Esequiel Yuen MD
[2016-07-31] MEDS: MOTRIN PO PRN (12:12)
[2016-07-31] MEDS: XARELTO PO SCH (16:12)
[2016-07-31] MEDS: ROCEPHIN 1 GM/NS 1 GM/50 ML IVPB IV SCH (22:58)
[2016-08-01] MEDS: DUONEB (A & A) INH SCH ×6 (02:58→23:20)
[2016-08-01 06:04] LABS: HEMATOCRIT 30.2 % (37.0-47.0); HEMOGLOBIN 9.9 g/dL (12.0-16.0); MCH 28.3 PG (27-31); MCHC 32.8 g/dL (33-37); MCV 86.3 FL (81-99); RBC 3.5 XMIL (4.2-5.4)
[2016-08-01] MEDS: HUMALOG DOSE (PARKWAY) SUBQ SCH ×4 (06:12→20:59)
[2016-08-01 06:19] LABS: ALBUMIN 2.9 g/dL (3.5-5.0); CALCIUM 8.4 mg/dL (8.8-10.2); MAGNESIUM 2.4 mg/dL (1.5-2.7); POTASSIUM 3.5 mmol/L (3.5-5.1); TOTAL BILIRUBIN 0.3 mg/dL (0.20-1.00); TOTAL PROTEIN 5.7 g/dL (6.3-8.3)
--- NOTE | 2016-08-01 08:36 | PROGRESS NOTE ---
DATE: 08/01/2016 SUBJECTIVE: Patient notes she is feeling a little bit better. Still having significant cough. Still not getting out of bed due to her generalized weakness. OBJECTIVE: Vital signs: Temperature 98, pulse 65, respiratory rate 18, BP 160/40, saturation 96% on 2 L. General: Patient is awake, alert. She is lying in bed. She is comfortable. Pleasant to talk with. Neck: Supple. CV: Regular rate. Chest: Relatively clear. Positive wheezing but improved from yesterday's exam. Decreased crackles. Abdomen: Soft, obese. Extremities: Moves all extremities. LABS: WBCs 9, hemoglobin and hematocrit 9 and 30. Sodium 132, creatinine 1.0, calcium 8.4, albumin 2.9. ASSESSMENT: 1. Moderate protein calorie malnutrition. 2. Hyponatremia, improved. 3. Pneumonia, improving. 4. Chronic obstructive pulmonary disease with exacerbation and wheezing, improving. 5. Leukocytosis, resolved. 6. Diabetes. PLAN: We will continue patient on her current medications, breathing treatments, azithromycin p.o. We will continue Rocephin today. Can transition to oral antibiotics in the a.m. Hopefully home in the next 1-2 days. cc: Esequiel Yuen MD
[2016-08-01] MEDS: LANTUS INSULIN (PARKWAY) SUBQ SCH ×2 (08:46→21:00)
[2016-08-01] MEDS: ZITHROMAX PO SCH (08:46)
[2016-08-01] MEDS: PREDNISONE PO SCH (08:46)
[2016-08-01] MEDS: CULTURELLE PO SCH ×2 (08:46→21:01)
[2016-08-01] MEDS: APRESOLINE PO SCH ×2 (08:46→21:01)
[2016-08-01] MEDS: ISORDIL PO SCH (08:47)
[2016-08-01] MEDS: TYLENOL PO PRN ×2 (08:47→21:01)
[2016-08-01] MEDS: PERICOLACE PO SCH ×2 (08:47→21:00)
[2016-08-01] MEDS: XARELTO PO SCH (16:09)
[2016-08-01] MEDS: ROBITUSSIN-DM PO PRN (21:00)
[2016-08-01] MEDS: CLARITIN PO SCH (21:01)
[2016-08-02] MEDS: ROCEPHIN 1 GM/NS 1 GM/50 ML IVPB IV SCH ×2 (00:11→22:04)
[2016-08-02] MEDS: ROBITUSSIN-DM PO PRN (01:39)
[2016-08-02] MEDS: DUONEB (A & A) INH SCH ×6 (03:19→23:06)
[2016-08-02] MEDS: TYLENOL PO PRN ×3 (05:30→20:58)
[2016-08-02 06:03] LABS: HEMATOCRIT 30.6 % (37.0-47.0); HEMOGLOBIN 9.9 g/dL (12.0-16.0); MCH 28.3 PG (27-31); MCHC 32.4 g/dL (33-37); MCV 87.4 FL (81-99); MPV 10.5 FL (7.4-10.4); RBC 3.5 XMIL (4.2-5.4)
[2016-08-02 06:23] LABS: AGAP 11; ALKALINE PHOSPHATASE 95 U/L (32-104); BUN 27 mg/dL (8-22); CALCIUM 8.3 mg/dL (8.8-10.2); CHLORIDE 102 mmol/L (98-107); COSMO 277; GOT 44 U/L (10-30); GPT 42 U/L (10-36); POTASSIUM 3.7 mmol/L (3.5-5.1); SODIUM 137 mmol/L (136-145); TCO2 24 mmol/L (25-35); TOTAL PROTEIN 5.1 g/dL (6.3-8.3)
[2016-08-02] MEDS: HUMALOG DOSE (PARKWAY) SUBQ SCH ×4 (06:28→20:52)
--- NOTE | 2016-08-02 08:27 | Diag Imaging Result Document ---
PROCEDURE NAME: CHEST-2 VIEWS - 08/02/2016 CHEST, TWO VIEWS: INDICATION: Hypoxia. COMPARISON: 07/28/2016. FINDINGS: There is cardiomegaly with a prosthetic valve replacement and right sided pacemaker. There is increasing opacity left lower lobe suspicious for pneumonia. There are prominent interstitial markings suggesting mild superimposed interstitial edema. There is a left pleural effusion. There is also atelectasis or consolidation within the right middle lobe. There is an unchanged compression deformity at approximately L2. IMPRESSION: 1. Left lower lobe infiltrate and effusion suspicious for pneumonia. 2. Cardiomegaly with bilateral interstitial edema. 3. Atelectasis or consolidation, right middle lobe.
[2016-08-02] MEDS: ISORDIL PO SCH (08:50)
[2016-08-02] MEDS: LANTUS INSULIN (PARKWAY) SUBQ SCH ×2 (08:50→20:53)
[2016-08-02] MEDS: CULTURELLE PO SCH ×2 (08:50→20:52)
[2016-08-02] MEDS: PERICOLACE PO SCH ×2 (08:51→20:52)
[2016-08-02] MEDS: APRESOLINE PO SCH ×2 (08:51→20:52)
[2016-08-02] MEDS: ZITHROMAX PO SCH (08:51)
[2016-08-02] MEDS: NORVASC PO SCH ×2 (08:51→20:52)
[2016-08-02] MEDS: PREDNISONE PO SCH (08:51)
--- NOTE | 2016-08-02 12:44 | PROGRESS NOTE ---
DATE: 08/02/2016 SUBJECTIVE: This patient states that she is feeling a little bit better. She is still complaining of cough. She is still complaining about generalized weakness. OBJECTIVE: Vital Signs: Temperature 97.4 degrees, pulse 63, respiratory rate 20, blood pressure 190/60, oxygen saturation 98 on 2 L of nasal cannula. HEENT: Head normocephalic. No trauma. PERRLA. Neck: Supple. No JVD. No masses. Central trachea. Chest: Decreased breath sounds at the level of the left lower lung with rhonchi. Abdomen: Soft, obese. Extremities: She moves all 4 extremities. LABORATORY: WBC 9.5, hemoglobin 9.9, hematocrit 30.6, platelets 225,000. Sodium 137, potassium 3.7, chloride 102, BUN 27, creatinine 0.8, glucose 70, calcium 8.3. ASSESSMENT AND PLAN: 1. Left lower lung pneumonia. Continue with antibiotics. It looks like this patient is getting better. We will continue with the breathing treatment and oxygen as well. 2. Protein calorie malnutrition. Continue with the same diet. 3. Chronic obstructive pulmonary disease exacerbation. Continue with the breathing treatment, pulmonary toilet, and oxygen. This patient is on steroids as well. 4. Leukocytosis, resolved. 5. Type 2 diabetes. Continue with Lantus and sliding scale insulin. 6. History of atrial fibrillation. Continue with anticoagulation. 7. Hypertension. Her blood pressure has been high. She has been getting her home medication here and I will add amlodipine to her medications. We will monitor. cc: Mj Ortega MD
[2016-08-02] MEDS: XARELTO PO SCH (16:58)
[2016-08-02] MEDS: CLARITIN PO SCH (20:52)
[2016-08-03] MEDS: DUONEB (A & A) INH SCH ×5 (03:23→19:51)
[2016-08-03] MEDS: TYLENOL PO PRN ×2 (04:37→17:15)
[2016-08-03 06:42] LABS: MANUAL DIFF NEEDED? NO
[2016-08-03 06:52] LABS: BASO% 0.2 % (0.0-0.8); EOS# 0.11 X1000 (0.0-0.7); EOS% 1.1 % (0.0-10.0); HEMATOCRIT 30.1 % (37.0-47.0); HEMOGLOBIN 9.6 g/dL (12.0-16.0); IMM GRAN# 0.13 X1000 (0.0-0.04); IMM GRAN% 1.3 % (0.0-0.5); LYMPH% 13.3 % (20.5-51.1); MCH 28.2 PG (27-31); MCHC 31.9 g/dL (33-37); MCV 88.5 FL (81-99); MONO# 0.53 X1000 (0.11-0.59); MONO% 5.4 % (1.7-9.3); MPV 10.5 FL (7.4-10.4); NEUT% 78.7 % (42.2-75.2); PLT 243 X1000 (130-400)
[2016-08-03 07:20] LABS: CALCIUM 8.5 mg/dL (8.8-10.2); POTASSIUM 3.7 mmol/L (3.5-5.1)
[2016-08-03] MEDS: HUMALOG DOSE (PARKWAY) SUBQ SCH ×4 (07:28→21:39)
[2016-08-03] MEDS: ISORDIL PO SCH (09:45)
[2016-08-03] MEDS: ZITHROMAX PO SCH (09:45)
[2016-08-03] MEDS: PREDNISONE PO SCH (09:46)
[2016-08-03] MEDS: PERICOLACE PO SCH ×2 (09:46→21:06)
[2016-08-03] MEDS: NORVASC PO SCH ×3 (09:46→21:06)
[2016-08-03] MEDS: APRESOLINE PO SCH ×2 (09:46→21:06)
[2016-08-03] MEDS: CULTURELLE PO SCH ×2 (09:46→21:05)
[2016-08-03] MEDS: LANTUS INSULIN (PARKWAY) SUBQ SCH ×2 (10:46→21:39)
[2016-08-03] MEDS: CATAPRES PO SCH (10:56)
--- NOTE | 2016-08-03 14:37 | PROGRESS NOTE ---
DATE: 08/03/2016 SUBJECTIVE: This patient states that she is feeling a little bit better. She is still complaining of cough and generalized weakness. OBJECTIVE: Vital Signs: Temperature 97.3 degrees, pulse 58, respiratory rate 12, blood pressure 180/53, oxygen saturation 100% on 2 L of nasal cannula. HEENT: Head normocephalic. No trauma. PERRLA. Neck: Supple. No JVD. No masses. Central trachea. Chest: Decreased breath sounds at the level of the left lower lung with rhonchi. Abdomen: Soft, nontender, nondistended, obese. Extremities: She moves all 4 extremities. LABORATORY: WBC 9.7, hemoglobin 9.6, hematocrit 30.1, platelet 243,000. Sodium 140, potassium 3.7, chloride 104, bicarbonate 25, BUN 24, creatinine 0.9, glucose 58, calcium 8.5. ASSESSMENT AND PLAN: 1. Left lower lung pneumonia. Continue with antibiotics. It looks like she is getting better. We will continue with the breathing treatment and oxygen as well. 2. Protein calorie malnutrition. Will continue with the same diet. 3. Chronic obstructive pulmonary disease exacerbation. Continue with the same treatment, pulmonary toilet, oxygen, and steroids. 4. Type 2 diabetes. I will decrease the dose of Lantus because she has been having morning hypoglycemia. It has been decreased from 25 to 20. Will monitor. 5. History of atrial fibrillation. Continue with anticoagulation. 6. Hypoglycemia. As above. 7. Hypertension. Her blood pressure has been still high. I will start this patient on clonidine 0.1 daily and I will monitor. Also I will ask for a new echocardiogram. 8. Peripheral neuropathy. I will start this patient on a low dose of Neurontin. cc: Mj Ortega MD
[2016-08-03] MEDS: XARELTO PO SCH (17:09)
[2016-08-03] MEDS: CLARITIN PO SCH (21:06)
[2016-08-03] MEDS: ROCEPHIN 1 GM/NS 1 GM/50 ML IVPB IV SCH (22:55)
[2016-08-04] MEDS: DUONEB (A & A) INH SCH ×7 (00:18→22:55)
[2016-08-04] MEDS: MOTRIN PO PRN ×2 (04:28→21:25)
[2016-08-04] MEDS: HUMALOG DOSE (PARKWAY) SUBQ SCH ×4 (06:14→21:19)
[2016-08-04 06:31] LABS: MANUAL DIFF NEEDED? NO
[2016-08-04 06:39] LABS: BASO% 0.2 % (0.0-0.8); EOS# 0.12 X1000 (0.0-0.7); EOS% 1.2 % (0.0-10.0); HEMATOCRIT 31.4 % (37.0-47.0); HEMOGLOBIN 9.9 g/dL (12.0-16.0); IMM GRAN# 0.17 X1000 (0.0-0.04); IMM GRAN% 1.7 % (0.0-0.5); LYMPH# 1.46 X1000 (1.2-3.4); LYMPH% 14.2 % (20.5-51.1); MCH 28.4 PG (27-31); MCHC 31.5 g/dL (33-37); MONO# 0.51 X1000 (0.11-0.59); MPV 10.3 FL (7.4-10.4); NEUT% 77.7 % (42.2-75.2); PLT 254 X1000 (130-400); RBC 3.49 XMIL (4.2-5.4)
[2016-08-04 07:09] LABS: CALCIUM 8.4 mg/dL (8.8-10.2); POTASSIUM 4.2 mmol/L (3.5-5.1)
[2016-08-04] MEDS: CULTURELLE PO SCH ×2 (10:18→20:51)
[2016-08-04] MEDS: APRESOLINE PO SCH ×2 (10:18→20:51)
[2016-08-04] MEDS: PREDNISONE PO SCH (10:18)
[2016-08-04] MEDS: CATAPRES PO SCH (10:18)
[2016-08-04] MEDS: ZITHROMAX PO SCH (10:19)
[2016-08-04] MEDS: LANTUS INSULIN (PARKWAY) SUBQ SCH ×2 (10:19→21:18)
[2016-08-04] MEDS: ISORDIL PO SCH (10:19)
[2016-08-04] MEDS: NORVASC PO SCH ×2 (10:19→20:51)
[2016-08-04] MEDS: PERICOLACE PO SCH ×2 (10:19→20:51)
--- NOTE | 2016-08-04 13:40 | PROGRESS NOTE ---
DATE: 08/04/2016 SUBJECTIVE: This patient states that she is feeling much better today. She is still complaining of cough, she is still having wheezing, but compared with yesterday she is much better. She has been having hyperglycemia, but since I decreased the dose of Lantus, this patient has had better blood sugars. OBJECTIVE: Vital Signs: Temperature 97.9 degrees, pulse 65, respiratory rate 19, blood pressure 149/56, oxygen saturation 100% on room air. HEENT: Head normocephalic. No trauma. PERRLA. Neck: Supple. No JVD. No masses. Central trachea. Chest: Decreased breath sounds at the level of the left lower lung with rhonchi, scattered generalized expiatory wheezing. Abdomen: Soft, nontender, nondistended. Obese. Extremities: She moves all 4 extremities, 2+ lower extremity edema. LABORATORY: WBC 10.3, hemoglobin 9.1, hematocrit 31.4, platelets 254. Sodium 136, potassium 4.2, chloride 101, bicarbonate 23, BUN 25, creatinine 0.9, glucose 125, calcium 8.4. ASSESSMENT AND PLAN: 1. Left lower lung pneumonia. Continue with antibiotics. She is getting better. We will continue with breathing treatment and oxygen as well. 2. Chronic obstructive pulmonary disease exacerbation. We will continue with the same treatment. Oxygen, steroids and pulmonary toilet. 3. Type 2 diabetes. The dose of Lantus was decreased from 25 to 20. The blood sugar has been better controlled. Continue with the same management. 4. Hypoglycemia, resolved. 5. History of atrial fibrillation. Continue with anticoagulation. 6. Hypertension. The blood pressure is better controlled, I placed this patient on clonidine 0.1 daily, the blood pressure looks better today, pending echocardiogram. 7. Peripheral neuropathy. Continue with Neurontin. 8. Physical deconditioning. I will ask for physical therapy today. Overall, this patient is feeling much better. If the echocardiogram and the patient are okay, by tomorrow probably this patient can be discharged with an active follow up by his primary care physician in 1 week. cc: Mj Ortega MD
[2016-08-04] MEDS: DUONEB (A & A) INH PRN (14:01)
[2016-08-04] MEDS: XARELTO PO SCH (16:49)
[2016-08-04] MEDS: NEURONTIN PO SCH (20:51)
[2016-08-04] MEDS: CLARITIN PO SCH (20:51)
[2016-08-04] MEDS: ROCEPHIN 1 GM/NS 1 GM/50 ML IVPB IV SCH (22:04)
[2016-08-05] MEDS: DUONEB (A & A) INH SCH ×5 (03:50→19:03)
[2016-08-05] MEDS ORDERED: D50W SYRINGE ONE (04:27)
[2016-08-05] MEDS ORDERED: D50W SYRINGE IV PRN (05:13)
[2016-08-05] MEDS: HUMALOG DOSE (PARKWAY) SUBQ SCH ×4 (06:02→21:14)
[2016-08-05 08:02] LABS: MANUAL DIFF NEEDED? NO
[2016-08-05 08:07] LABS: BASO% 0.2 % (0.0-0.8); EOS# 0.14 X1000 (0.0-0.7); EOS% 1.7 % (0.0-10.0); HEMATOCRIT 34.1 % (37.0-47.0); HEMOGLOBIN 10.8 g/dL (12.0-16.0); IMM GRAN# 0.13 X1000 (0.0-0.04); IMM GRAN% 1.6 % (0.0-0.5); LYMPH# 1.06 X1000 (1.2-3.4); LYMPH% 13.1 % (20.5-51.1); MCH 28.7 PG (27-31); MCHC 31.7 g/dL (33-37); MCV 90.7 FL (81-99); MONO% 7.4 % (1.7-9.3); MPV 10.1 FL (7.4-10.4); PLT 273 X1000 (130-400); RBC 3.76 XMIL (4.2-5.4)
[2016-08-05 09:13] LABS: AGAP 10; BUN 21 mg/dL (8-22); CALCIUM 8.3 mg/dL (8.8-10.2); CHLORIDE 106 mmol/L (98-107); COSMO 286; POTASSIUM 4.3 mmol/L (3.5-5.1); SODIUM 142 mmol/L (136-145); TCO2 26 mmol/L (25-35)
[2016-08-05] MEDS: ISORDIL PO SCH (09:39)
[2016-08-05] MEDS: ZITHROMAX PO SCH (09:39)
[2016-08-05] MEDS: CATAPRES PO SCH (09:40)
[2016-08-05] MEDS: PERICOLACE PO SCH ×2 (09:40→20:53)
[2016-08-05] MEDS: NORVASC PO SCH ×2 (09:40→20:53)
[2016-08-05] MEDS: NEURONTIN PO SCH ×2 (09:40→20:53)
[2016-08-05] MEDS: APRESOLINE PO SCH ×2 (09:40→20:53)
[2016-08-05] MEDS: LANTUS INSULIN (PARKWAY) SUBQ SCH ×2 (09:40→11:17)
[2016-08-05] MEDS: PREDNISONE PO SCH (09:40)
[2016-08-05] MEDS: CULTURELLE PO SCH ×2 (09:40→20:53)
--- NOTE | 2016-08-05 13:41 | PROGRESS NOTE ---
DATE: 08/05/2016 SUBJECTIVE: Today, Ms. Madrigal refers to be doing slightly better. She continues to have issues with breathing and her temperatures have been very low. She is currently under warm compresses. OBJECTIVE: Vital signs: Blood pressure is 156/63, pulse is 65, respirations 20 , temperature 92.2 degrees and it was 98.3 earlier today. The patient, as I said, is currently under warming. General: Ms. Madrigal is an 85-year-old female. She was in bed. She did not seem to be in any distress. HEENT: Mucosa pink and moist. Anicteric. Acyanotic. Neck: Supple. Chest: Air entry was bilaterally reduced. A few bibasilar crepitations. Cardiovascular: Regular rate and rhythm. Central Nervous System: Patient is alert. She follows commands and there is no new focal neurological deficit. LABORATORY DATA: WBC is 8.11, hemoglobin is 10.8, platelet count is 273,000, and there was no manual differential. Chemistries reviewed and completely unremarkable. Glucose is 101. Of note, patient did run very low glucose earlier today. CURRENT MEDICATIONS: 1. Insulin glargine 30 units b.i.d. 2. Sliding scale. 3. Isordil 40 b.i.d. 4. Prednisone 10 mg daily. 5. Xarelto 20 mg daily. ASSESSMENT: 1. Left lower lobe pneumonia. Patient is on antibiotics. 2. Chronic obstructive pulmonary disease, in mild exacerbation. 3. Diabetes mellitus. Patient is on b.i.d. Lantus, on which she is running low glucose, especially in the sleeve maker. I will therefore discontinue the night Lantus and use only the morning. 4. History of atrial fibrillation, on Xarelto anticoagulation. 5. Peripheral neuropathy noted. 6. Hypothermia. I am not quite sure if this is just because of her sepsis or it is environmental. Patient is, however, getting warming. We will observe her to make sure her vitals are stable before we send her to the group home. cc: MD BECKIE Chun
--- NOTE | 2016-08-05 14:27 | ECHO REPORT ---
ORDER DATE: 08/03/2016 ECHOCARDIOGRAPHIC MEASUREMENTS: 1. Interventricular septum 1.6. 2. Left ventricular posterior wall 1.4. 3. Diastolic diameter 4. 4. Left atrium 5.2. 5. Aorta 3.5. FINDINGS: 1. Normal left ventricular cavity size. Concentric left ventricular hypertrophy. Estimated ejection fraction of 60%. 2. Prominent papillary muscles were noted, which were part of the valve structure of chemehuevi valves. 3. 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 4. Aortic valve leaflets were trileaflet. 5. Tricuspid valve was normal. 6. Pulmonic valve was normal. 7. Peak velocity across the aortic valve was 2.3 meters/second. There is aortic sclerosis. There is no aortic stenosis or regurgitation. 8. There is moderate tricuspid regurgitation. Peak velocity across the tricuspid valve was 3.4 meters/second. Pulmonary artery systolic of pressure 57 mmHg. Pacing leads were noted in the right chamber. 9. There is pulmonary arterial hypertension. CONCLUSIONS: 1. Normal left ventricular cavity size. Concentric left ventricular hypertrophy. Estimated ejection fraction of 60%. 2. Bioprosthetic valve in the mitral position was stable, mitral valve area by pressure half-time was 1.3 sq cm with a mean gradient of 5 mmHg in keeping with bioprosthetic valve. In addition, papillary muscle, which was part of the che[place]uevi valve, was seen in the left ventricle with some filamentous lesion on that. This is likely to represent the papillary muscle of the chemehuevi valve, which was incised during valve surgery. 3. There is no pericardial effusion. cc: MD Mj Diehl MD MTDD
[2016-08-05] MEDS: XARELTO PO SCH (17:23)
[2016-08-05] MEDS: CLARITIN PO SCH (20:53)
[2016-08-05] MEDS: ROCEPHIN 1 GM/NS 1 GM/50 ML IVPB IV SCH (22:15)
[2016-08-06] MEDS: DUONEB (A & A) INH SCH ×7 (00:23→23:19)
[2016-08-06 07:53] LABS: MANUAL DIFF NEEDED? NO
[2016-08-06 08:30] LABS: AGAP 12; BUN 19 mg/dL (8-22); CALCIUM 8.5 mg/dL (8.8-10.2); CHLORIDE 105 mmol/L (98-107); COSMO 282; MAGNESIUM 2.3 mg/dL (1.5-2.7); POTASSIUM 3.7 mmol/L (3.5-5.1); SODIUM 141 mmol/L (136-145); TCO2 25 mmol/L (25-35)
[2016-08-06 08:41] LABS: BASO% 0.3 % (0.0-0.8); EOS# 0.17 X1000 (0.0-0.7); EOS% 1.7 % (0.0-10.0); HEMATOCRIT 33.6 % (37.0-47.0); HEMOGLOBIN 10.4 g/dL (12.0-16.0); IMM GRAN# 0.15 X1000 (0.0-0.04); IMM GRAN% 1.5 % (0.0-0.5); LYMPH# 1.31 X1000 (1.2-3.4); LYMPH% 12.8 % (20.5-51.1); MCV 90.3 FL (81-99); MONO# 0.58 X1000 (0.11-0.59); MONO% 5.7 % (1.7-9.3); MPV 10.1 FL (7.4-10.4); PLT 285 X1000 (130-400); RBC 3.72 XMIL (4.2-5.4)
[2016-08-06] MEDS: ISORDIL PO SCH (10:22)
[2016-08-06] MEDS: CATAPRES PO SCH (10:23)
[2016-08-06] MEDS: NORVASC PO SCH ×2 (10:23→22:17)
[2016-08-06] MEDS: CULTURELLE PO SCH ×2 (10:23→22:16)
[2016-08-06] MEDS: PERICOLACE PO SCH ×2 (10:23→22:18)
[2016-08-06] MEDS: NEURONTIN PO SCH ×2 (10:23→22:19)
[2016-08-06] MEDS: APRESOLINE PO SCH ×2 (10:24→22:17)
[2016-08-06] MEDS: ZITHROMAX PO SCH (10:24)
[2016-08-06] MEDS: LANTUS INSULIN (PARKWAY) SUBQ SCH (10:40)
[2016-08-06] MEDS: PREDNISONE PO SCH (10:43)
[2016-08-06] MEDS: HUMALOG DOSE (PARKWAY) SUBQ SCH ×4 (10:43→22:18)
[2016-08-06] MEDS: HUMULIN R (PARKWAY) SUBQ SCH ×2 (12:39→17:58)
[2016-08-06] MEDS: TYLENOL PO PRN ×2 (12:39→22:17)
--- NOTE | 2016-08-06 12:56 | PROGRESS NOTE ---
DATE: 08/06/2016 Today Ms. Madrigal referred to be doing a little better. Did complain of some swelling in her lower extremities. OBJECTIVE: Vital signs: Blood pressure is 152/61, pulse of 65, respirations 18, temperature 97.2 degrees. General: Ms. Madrigal is an 85-year-old, female. She is in bed, no distress. HEENT: Mucosa is pink and moist. Anicteric. Acyanotic. Neck: Supple. Chest: Air entry is bilaterally reduced. A few expiratory wheezing in the lower back. Cardiovascular: Regular rate and rhythm. Abdomen: Soft, distended, but nontender. SULFONATOR OPERATOR: Patient is alert and oriented. Extremities: About 3+ pedal edema. LABORATORY DATA: WBC is 10.26, hemoglobin is 10.4, platelet count of 285,000. Chemistry reviewed, completely unremarkable. Glucose is 79. ASSESSMENT: 1. Left lower lobe pneumonia. Patient is currently on ceftriaxone and azithromycin. Today is day 8 on antibiotics. We plan to treat for a total of 10 days. 2. COPD in mild exacerbation. This is improving. We will continue with the nebulization and pulmonary toilette. 3. Diabetes mellitus. Fasting glucose is a whole lot better. So will keep the current Lantus however I think the post prandial is remarkably high so I will add 5 units of regular insulin with meals. 4. History of atrial fibrillation currently rate controlled and patient is on Xarelto anticoagulation. 5. Peripheral neuropathy. Noted. 6. Bilateral lower extremities. I think it is a combination of poor venous drainage from morbid obesity as well as possible underlying diastolic heart failure. We will give the patient some Lasix to help with the fluid. 7. Hypothermia is improved. 8. Hypertension. It is controlled. cc: Bobby Tomlinson MD
[2016-08-06] MEDS: LASIX IV SCH (15:12)
[2016-08-06] MEDS: XARELTO PO SCH (17:57)
[2016-08-06] MEDS: ROCEPHIN 1 GM/NS 1 GM/50 ML IVPB IV SCH (22:16)
[2016-08-06] MEDS: CLARITIN PO SCH (22:19)
[2016-08-07] MEDS: DUONEB (A & A) INH SCH ×6 (04:20→23:43)
[2016-08-07] MEDS: HUMALOG DOSE (PARKWAY) SUBQ SCH ×4 (06:20→22:33)
[2016-08-07 07:26] LABS: CALCIUM 8.2 mg/dL (8.8-10.2); POTASSIUM 4.1 mmol/L (3.5-5.1)
[2016-08-07] MEDS: HUMULIN R (PARKWAY) SUBQ SCH ×3 (09:54→17:14)
[2016-08-07] MEDS: LANTUS INSULIN (PARKWAY) SUBQ SCH (09:54)
[2016-08-07] MEDS: ISORDIL PO SCH (09:56)
[2016-08-07] MEDS: ZITHROMAX PO SCH (09:56)
[2016-08-07] MEDS: APRESOLINE PO SCH ×2 (09:56→22:32)
[2016-08-07] MEDS: CULTURELLE PO SCH ×2 (09:57→22:32)
[2016-08-07] MEDS: CATAPRES PO SCH (09:57)
[2016-08-07] MEDS: NORVASC PO SCH ×2 (09:57→22:32)
[2016-08-07] MEDS: NEURONTIN PO SCH ×2 (09:57→22:32)
[2016-08-07] MEDS: LASIX IV SCH ×2 (09:57→15:34)
[2016-08-07] MEDS: PERICOLACE PO SCH ×2 (09:57→22:33)
[2016-08-07] MEDS: PREDNISONE PO SCH (09:57)
[2016-08-07] MEDS: TYLENOL PO PRN ×2 (13:46→22:33)
--- NOTE | 2016-08-07 16:17 | PROGRESS NOTE ---
DATE: 08/07/2016 SUBJECTIVE: This morning, Ms. Madrgial referred to be doing fine. The shortness of breath and respiratory symptoms have improved, but she is concerned about her lower extremity swelling. OBJECTIVE: Vital signs: Blood pressure is 148/49, pulse of 67, respiration is 18, temperature 98.5 degrees. General: Ms. Madrigal is an 85-year-old, female. She was in bed, not seemingly distressed. HEENT: Mucosa is pink and moist. Anicteric and acyanotic. Chest: Good air entry bilaterally. A few bibasilar crepitations. Cardiovascular: Regular rate and rhythm. Abdomen: Soft, nontender. Extremities: About 3+ pedal edema bilateral. LABORATORY DATA: Sodium is 137, potassium is 4.1, chloride is 101, bicarb is 25, creatinine 0.9. Her glucose is 158. ASSESSMENT: 1. Left lower lobe pneumonia. Patient is on ceftriaxone and azithromycin. Today is day 9, tomorrow will be the last day of antibiotics. 2. Chronic obstructive pulmonary disease in mild exacerbation. This also improved. We will continue with p.r.n. nebulization and adequate pulmonary toilette. 3. Diabetes mellitus, improved. 4. History of atrial fibrillation, currently rate controlled. Patient will continue Xarelto for anticoagulation. 5. Bilateral lower extremity swelling likely secondary to diastolic heart failure. The patient is getting Lasix. We will also use compression stockings to help with venous drainage since I suspect there is some underlying venous insufficiency. PLAN: I think Ms. Madrigal is ready to go back to the half-way which will be tomorrow after she gets her last dose of IV antibiotics. She is concerned about her lower extremity swelling, which I did advice that we would continue with the Lasix for now and also use compression stockings and advised to elevate her lower extremities when she has even sitting down to avoid hanging them because that will make it worse. I think if she continues to be stable, tomorrow we should be able to discharge her. cc: Bobby Tomlinson MD
[2016-08-07] MEDS: XARELTO PO SCH (17:13)
[2016-08-07] MEDS: ROCEPHIN 1 GM/NS 1 GM/50 ML IVPB IV SCH (22:33)
[2016-08-07] MEDS: CLARITIN PO SCH (22:34)
[2016-08-08] MEDS: DUONEB (A & A) INH SCH ×5 (04:56→20:12)
[2016-08-08] MEDS: HUMALOG DOSE (PARKWAY) SUBQ SCH ×4 (06:37→21:20)
[2016-08-08 06:53] LABS: AGAP 13; BUN 23 mg/dL (8-22); CHLORIDE 103 mmol/L (98-107); COSMO 284; POTASSIUM 3.7 mmol/L (3.5-5.1); SODIUM 141 mmol/L (136-145); TCO2 25 mmol/L (25-35)
[2016-08-08] MEDS: HUMULIN R (PARKWAY) SUBQ SCH ×3 (08:57→16:57)
[2016-08-08] MEDS: LASIX IV SCH ×2 (08:57→15:25)
[2016-08-08] MEDS: LANTUS INSULIN (PARKWAY) SUBQ SCH (08:57)
[2016-08-08] MEDS: APRESOLINE PO SCH ×2 (10:44→20:15)
[2016-08-08] MEDS: CULTURELLE PO SCH ×2 (10:44→20:15)
[2016-08-08] MEDS: PERICOLACE PO SCH ×2 (10:44→20:15)
[2016-08-08] MEDS: ISORDIL PO SCH (10:44)
[2016-08-08] MEDS: NEURONTIN PO SCH ×2 (10:44→20:15)
[2016-08-08] MEDS: PREDNISONE PO SCH (10:45)
[2016-08-08] MEDS: NORVASC PO SCH ×2 (10:45→20:15)
[2016-08-08] MEDS: CATAPRES PO SCH (10:45)
[2016-08-08] MEDS: ZITHROMAX PO SCH (10:45)
--- NOTE | 2016-08-08 12:19 | PROGRESS NOTE ---
DATE: 08/08/2016 SUBJECTIVE: Patient has no focal complaints. OBJECTIVE: Vital Signs: Blood pressure 161/78, heart rate of 68, respiratory rate of 20, temperature 97.9 degrees, 98% on 2 L. Cardiovascular: Regular rate and rhythm. Pulmonary: Bilateral breath sounds clear to auscultation. GI: Soft, nontender, nondistended. Bowel sounds are positive. Laboratory Data: Basic looked okay. PROBLEM LIST: 1. Pneumonia. She is on day 10 of Rocephin and seems to be doing okay. 2. Chronic obstructive pulmonary disease exacerbation. She is doing okay from that standpoint. Continue nebulizer treatments. 3. Atrial fibrillation. She is rate controlled on Xarelto. 4. Lower extremity edema. She still has some edema and she is on intravenous Lasix. She does have some visible shortness of breath today. I am going to watch her 1 more day and plan for discharge tomorrow if stable back to the longterm. cc: Lauri Anthony MD
[2016-08-08] MEDS: VOLTAREN 1% GEL TOP SCH ×3 (15:24→20:15)
[2016-08-08] MEDS: XARELTO PO SCH (16:57)
[2016-08-08] MEDS: CLARITIN PO SCH (20:16)
[2016-08-08] MEDS: ROCEPHIN 1 GM/NS 1 GM/50 ML IVPB IV SCH (22:17)
[2016-08-09] MEDS: DUONEB (A & A) INH SCH ×4 (03:36→11:40)
[2016-08-09] MEDS: HUMALOG DOSE (PARKWAY) SUBQ SCH ×2 (06:38→11:35)
[2016-08-09 07:49] LABS: AGAP 9; BUN 23 mg/dL (8-22); CALCIUM 8.3 mg/dL (8.8-10.2); CHLORIDE 103 mmol/L (98-107); COSMO 283; POTASSIUM 3.5 mmol/L (3.5-5.1); SODIUM 140 mmol/L (136-145); TCO2 27 mmol/L (25-35)
[2016-08-09] MEDS: HUMULIN R (PARKWAY) SUBQ SCH ×2 (08:56→11:34)
[2016-08-09] MEDS: LANTUS INSULIN (PARKWAY) SUBQ SCH (08:57)
[2016-08-09] MEDS: PERICOLACE PO SCH (08:58)
[2016-08-09] MEDS: NORVASC PO SCH (08:59)
[2016-08-09] MEDS: CULTURELLE PO SCH (08:59)
[2016-08-09] MEDS: CATAPRES PO SCH (08:59)
[2016-08-09] MEDS: ISORDIL PO SCH (08:59)
[2016-08-09] MEDS: APRESOLINE PO SCH (08:59)
[2016-08-09] MEDS: NEURONTIN PO SCH (08:59)
[2016-08-09] MEDS: ZITHROMAX PO SCH (08:59)
[2016-08-09] MEDS ORDERED: PRINIVIL PO SCH (09:00)
[2016-08-09] MEDS: VOLTAREN 1% GEL TOP SCH ×2 (09:01→13:31)
[2016-08-09] MEDS: PREDNISONE PO SCH (09:02)
--- NOTE | 2016-08-09 10:08 | DISCHARGE SUMMARY ---
ADMISSION DATE: 07/28/2016 DISCHARGE DATE: 08/09/2016 DIAGNOSES: 1. Left lower lobe pneumonia. 2. Chronic obstructive pulmonary disease, mild exacerbation. 3. Diabetes type 2. 4. History of atrial fibrillation with rate controlled, on anticoagulation. 5. Hypertension. DIAGNOSTICS: On 07/28/2016 chest x-ray reveals heart is mildly prominent. 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 The patient has a right-sided pacemaker. There increased interstitial markings representing pulmonary edema or fibrosis. On 08/02/2016, left lower lobe infiltrate suspicious for pneumonia. Cardiomegaly with bilateral interstitial edema and atelectasis or consolidation right middle lobe. On 08/03/2016 echocardiogram revealed normal left ventricular cavity size. Concentric left ventricular hypertrophy. Estimated ejection fraction of 60%. Bioprosthetic valve in the mitral position, stable. There is no pericardial effusion. MICROBIOLOGY: Blood cultures x2 revealed no growth. Sputum culture revealed. Normal arash. HOSPITAL COURSE: Ms. Madrigal presented to the emergency room with shortness of breath, congestion, and cough. She was found to have left lower lobe pneumonia for which she received azithromycin and Rocephin x10 days, as well as a COPD exacerbation. She was given DuoNeb along with pulmonary toilet, supplemental oxygen, steroids to taper. She has improved. We did continue her home medications. Blood sugars ranged in the 100-300 range for which she received Lantus and sliding scale insulin. Heart rate stayed between 60s to 70s in a controlled atrial fibrillation. She did have lower extremity edema for which she was diuresed. She does have trace pedal edema bilateral. PHYSICAL EXAMINATION: Cardiovascular: Regular rate and rhythm. S1 and S2 appreciated. Pulmonary: Breath sounds are clear. No increased work of breathing noted. Gastrointestinal: Abdomen is soft, nontender, nondistended with bowel sounds in all 4 quadrants. Extremities: No clubbing, cyanosis. She does have trace pedal edema bilateral. DISCHARGE MEDICATIONS: Norvasc 5 mg p.o. b.i.d., Tylenol 650 every 6 hours as needed, hydralazine 100 mg b.i.d., Xarelto 15 mg at bedtime, Humalog insulin 5 units subcutaneous b.i.d., Lantus insulin 25 units subcutaneous b.i.d., Aspercreme 10% as directed, probiotic and acidophilus capsule b.i.d., Ventolin inhaler 2 puffs every 4 hours as needed for wheezing and shortness of breath, Mucinex 600 mg p.o. b.i.d., Claritin 10 mg at bedtime, senna S tablet 1 b.i.d., isosorbide dinitrate 40 daily, prednisone taper 40 mg for 3 days, 30 mg for 3 days, 20 mg for 3 days, 10 mg for 3 days, and then discontinue. DISCHARGE ACTIVITY: Per physical therapy's evaluation and recommendations. DISCHARGE DIET: Diabetic. DISCHARGE VITAL SIGNS: Blood pressure is 141/35 with a heart rate of 70, respirations 20, temperature is 98.2 degrees oral, with oxygen saturations of 97 to 100% on 2 L nasal cannula. DISPOSITION: She is being discharged to [facility] in stable condition with family members present. TIME SPENT: This is a greater than 30 minute discharge, from 9:00 to 9:34. Dictated by BILL Menezes for Esequiel Yuen MD cc: BILL Menezes MD
[2016-08-09 11:25] VITALS: BP 166/61
[2016-08-09] MEDS ORDERED: XARELTO PO SCH (17:00)
== END 2016-08-09 13:32 ==
LOC: P.ED 20:23 → P.MEDSURG 23:07 → SUATTDRO 23:07
PROVIDERS: ATTEND Family Medicine

== ENCOUNTER 2016-08-20 09:03 | Inpatient (IN) ==
[2016-08-20 09:25] LABS: MANUAL DIFF NEEDED? NO
[2016-08-20 09:27] LABS: BASO% 0.3 % (0.0-0.8); EOS# 0.14 X1000 (0.0-0.7); HEMATOCRIT 40.4 % (37.0-47.0); HEMOGLOBIN 13.5 g/dL (12.0-16.0); IMM GRAN# 0.03 X1000 (0.0-0.04); IMM GRAN% 0.2 % (0.0-0.5); LYMPH# 3.22 X1000 (1.2-3.4); LYMPH% 23.4 % (20.5-51.1); MCH 28.6 PG (27-31); MCHC 33.4 g/dL (33-37); MCV 85.6 FL (81-99); MONO# 1.21 X1000 (0.11-0.59); MONO% 8.8 % (1.7-9.3); NEUT% 66.3 % (42.2-75.2); PLT 283 X1000 (130-400); RBC 4.72 XMIL (4.2-5.4)
[2016-08-20 09:58] LABS: ALBUMIN 3.7 g/dL (3.5-5.0); TOTAL BILIRUBIN 0.7 mg/dL (0.20-1.00); TOTAL PROTEIN 6.8 g/dL (6.3-8.3)
[2016-08-20 09:59] LABS: POTASSIUM 2.4 mmol/L (3.5-5.1)
--- NOTE | 2016-08-20 10:22 | Diag Imaging Result Doc PS360 ---
CHEST-2 VIEWS - 08/20/2016 INDICATION: cough TECHNIQUE: COMPARISON: 08/14/2016 FINDINGS: Stable valve replacement changes. Stable right-sided pacemaker. Stable cardiomegaly with mild pulmonary vascular congestion. No focal infiltrates, pneumothorax, or pleural effusion. IMPRESSION: Cardiomegaly and pulmonary vascular congestion but otherwise no acute disease. Electronically signed by Bruno Ocasio 08/20/2016 10:20 AM
[2016-08-20] MEDS ORDERED: NS 1,000 ML IV ONE (10:37)
[2016-08-20] MEDS ORDERED: KLOR-CON PO ONE (10:57)
--- NOTE | 2016-08-20 11:45 | EKG Report ---
Test Performed on : 08/20/2016 10:02:55 AM Test Reason : SOB Blood Pressure : / mmHG Vent. Rate : 065 BPM Atrial Rate : 078 BPM P-R Int : 000 ms QRS Dur : 192 ms QT Int : 556 ms P-R-T Axes : 000 043 102 degrees QTc Int : 578 ms Ventricular-paced rhythm Abnormal ECG When compared with ECG of 14-AUG-2016 20:29, No significant change was found Unconfirmed Result
[2016-08-20] MEDS ORDERED: VANCOMYCIN IV PER PHARMACY MISC SCH (12:30)
[2016-08-20] MEDS ORDERED: VANCOMYCIN 1,800 MG in NS 500 ML IV ONE (14:00)
[2016-08-20] MEDS ORDERED: ASPERCREME TOP PRN (14:24)
[2016-08-20] MEDS ORDERED: TYLENOL PR PRN (14:24)
[2016-08-20] MEDS ORDERED: VENTOLIN HFA INH PRN (14:24)
--- NOTE | 2016-08-20 14:55 | HISTORY AND PHYSICAL ---
CHIEF COMPLAINT: Increased shortness of breath and weakness that had progressively worsened since discharge on 08/09/2016. HISTORY OF PRESENTING ILLNESS: This is an 85-year-old female who presents to [facility] ER with complaints of increased shortness of breath and weakness that has progressively worsened since she went to rehab on 08/09/2016. She was admitted to this facility on 08/07/2016 with a left lower lobe pneumonia and discharged to [facility] on 08/09/2016. Since that time she states that she has had no energy, has not felt good and has had increased shortness of breath. She denied any fever, chills, or cough. Her workup in the ER showed a white blood cell count of 13.75. Her sodium was 133, her potassium was 2.4, creatinine 1.4 with a BUN of 52. It appears that she was diuresed during her last hospitalization and may have possibly gotten over-diuresis and now with some mild dehydration and acute kidney injury and hypokalemia. She was also discharged on steroids which can certainly make your BUN increase and creatinine also but she will be admitted for further evaluation and treatment. PAST MEDICAL HISTORY: Diabetes type 2, COPD, atrial fibrillation, hypertension , coronary artery disease and [place], GERD, CVA and hypothyroidism. PAST SURGICAL HISTORY: Pacemaker placement, CABG and a hysterectomy. FAMILY HISTORY: Noncontributory. SOCIAL HISTORY: She is residing at [facility]. Denies any tobacco, alcohol, or illicit drug use. ALLERGIES TO: Iodinated contrast media and codeine. HOME MEDICATIONS: Tylenol 650 mg p.o. q.6 hours p.r.n. Ventolin inhaler 2 puffs inhalation q.4 hours p.r.n. Norvasc 5 mg p.o. b.i.d. Mucinex 600 mg p.o. b.i.d. Hydralazine 100 mg p.o. b.i.d. Lantus 25 units subcutaneously b.i.d. Humalog 5 units subcutaneously b.i.d. Isosorbide 40 mg p.o. daily. Probiotic and acidophilus capsule 1 p.o. b.i.d. Claritin 10 mg p.o. at bedtime. Prednisone 10 mg p.o. daily. Xarelto 15 mg p.o. at bedtime. Senna S tablet 1 p.o. b.i.d. Aspercreme topically 3 times a day p.r.n. LABORATORY DATA: Showed a white blood cell count of 13.75, hemoglobin 13.5, hematocrit 40.4, platelets 283,000. Sodium 133, potassium 2.4, chloride 80, CO2 41, BUN of 52 with a creatinine of 1.4. Glucose 210. ProBNP of 497. Chest x-ray showed cardiomegaly and pulmonary vascular congestion but otherwise no acute disease. EKG showed a ventricular paced rhythm at 65. REVIEW OF SYSTEMS: She denied any fever, chills, blurred vision, dizziness, chest pain, coughing. She has been short of breath and generalized weakness. Denied any abdominal pain, constipation, diarrhea. PHYSICAL EXAM: Temp of 97.1 degrees, pulse 65, respirations 13, blood pressure 138/50, saturating 100% on 2 L via nasal cannula. GENERAL: This is an 85-year-old female who is lying in the bed, answers questions appropriately. HEENT: Normocephalic and atraumatic. Pupils are equal, round, reactive to light. Extraocular movements are intact. Oropharynx and nares are clear. NECK: Supple. LUNGS: Clear to auscultation bilaterally with equal lung expansion and chest wall movement. HEART: With regular rate and rhythm. No murmurs, rubs, or gallops. ABDOMEN: Soft, nontender, nondistended. Bowel sounds are present x4 quadrants. EXTREMITIES: No clubbing, cyanosis, or edema. Patient is noted to her right foot to the top to have erythema, mildly warm to touch. States that she had extensive swelling to that foot that has since decreased. No drainage noted. NEUROLOGICAL: The cranial nerves 2-12 appear grossly intact. ASSESSMENT: 1. Generalized weakness. 2. Hypokalemia. 3. Acute kidney injury. 4. Right foot cellulitis. PLAN: She was admitted to the medical unit. Placed on telemetry. O2 per protocol. Diabetic diet. On normal saline at 125 mL an hour. We will place her on vancomycin per pharmacy protocol. She was supplemented with p.o. potassium in the ER. We will continue her home medications and will recheck a CBC and a BMP in the a.m. Pt is a full code. Dictated by BILL Champion for Lauri Anthony MD cc: BILL Champion MD pt examined, will gently hydrate and treat cellulitis of the foot presumably and follow closely [facility]
[2016-08-20] MEDS: PERICOLACE PO SCH (20:42)
[2016-08-20] MEDS: NORVASC PO SCH (20:42)
[2016-08-20] MEDS: APRESOLINE PO SCH (20:42)
[2016-08-20] MEDS: CULTURELLE PO SCH (20:42)
[2016-08-20] MEDS: MUCINEX PO SCH (20:42)
[2016-08-20] MEDS: CLARITIN PO SCH (20:45)
[2016-08-20] MEDS ORDERED: XARELTO PO SCH (21:00)
[2016-08-20] MEDS ORDERED: LANTUS SUBQ SCH (21:00)
[2016-08-20] MEDS ORDERED: HUMALOG DOSE (PARKWAY) SUBQ SCH (21:00)
[2016-08-21] MEDS: TYLENOL PO PRN ×2 (00:19→21:00)
[2016-08-21 07:37] LABS: MANUAL DIFF NEEDED? NO
[2016-08-21 07:49] LABS: BASO% 0.3 % (0.0-0.8); EOS# 0.18 X1000 (0.0-0.7); HEMATOCRIT 37.8 % (37.0-47.0); HEMOGLOBIN 12.1 g/dL (12.0-16.0); IMM GRAN# 0.03 X1000 (0.0-0.04); IMM GRAN% 0.3 % (0.0-0.5); LYMPH# 1.74 X1000 (1.2-3.4); LYMPH% 19.6 % (20.5-51.1); MCH 27.9 PG (27-31); MCV 87.3 FL (81-99); MONO% 10.1 % (1.7-9.3); MPV 10.7 FL (7.4-10.4); NEUT% 67.7 % (42.2-75.2); PLT 220 X1000 (130-400); RBC 4.33 XMIL (4.2-5.4)
[2016-08-21 07:58] LABS: CALCIUM 8.8 mg/dL (8.8-10.2)
[2016-08-21 08:00] LABS: POTASSIUM 2.3 mmol/L (3.5-5.1)
[2016-08-21] MEDS ORDERED: HUMALOG DOSE (PARKWAY) SUBQ SCH (08:00)
[2016-08-21] MEDS: LANTUS INSULIN (PARKWAY) SUBQ SCH ×2 (08:14→21:00)
[2016-08-21] MEDS: PERICOLACE PO SCH ×2 (08:16→21:00)
[2016-08-21] MEDS: APRESOLINE PO SCH ×2 (08:16→21:00)
[2016-08-21] MEDS: MUCINEX PO SCH ×2 (08:16→21:00)
[2016-08-21] MEDS: NORVASC PO SCH ×2 (08:16→21:00)
[2016-08-21] MEDS: CULTURELLE PO SCH ×2 (08:16→21:01)
[2016-08-21] MEDS: PREDNISONE PO SCH (08:20)
[2016-08-21] MEDS: ISORDIL PO SCH (08:20)
[2016-08-21] MEDS ORDERED: NS 500 ML IV SCH (08:45)
[2016-08-21] MEDS ORDERED: POTASSIUM CHLORIDE 20 MEQ/SWI 20 MEQ/100 ML IVPB IV SCH (09:00)
[2016-08-21] MEDS ORDERED: KLOR-CON PO ONE (12:10)
--- NOTE | 2016-08-21 13:29 | PROGRESS NOTE ---
DATE: 08/21/2016 SUBJECTIVE: Patient resting quietly in bed. States "I still feel really weak. " OBJECTIVE: Vital Signs: Temperature 98.1 degrees, pulse 65, respirations 18, blood pressure 148/34, saturating 100% on 2 L. General: This is an 85-year-old female lying in the bed, answers questions appropriately. HEENT: Normocephalic and atraumatic. Pupils are equal, round, reactive to light. Extraocular movements are intact. Oropharynx and nares are clear. Neck: Supple. Lungs: Clear to auscultation bilaterally with equal lung expansion and chest wall movement. Heart: With regular rate and rhythm. No murmurs, rubs, or gallops. Abdomen: Soft, nontender, nondistended. Bowel sounds are present x4 quadrants. Extremities: No clubbing, cyanosis, or edema. Neurological: Cranial nerves II through XII grossly intact. LABORATORY DATA: White blood cell count of 8.89, hemoglobin 12.1, hematocrit 37.8, platelets 220,000. Sodium 137, potassium 2.3, CO2 39, chloride 90, BUN of 41, creatinine 1.0, glucose 198. ASSESSMENT AND PLAN: 1. Generalized weakness. We will consult physical therapy. 2. Hypokalemia. We will supplement and recheck labs in the a.m. We will also check a magnesium level today. 3. Acute kidney injury, improved. 4. Right foot cellulitis, improved and it is less erythematous today. We will continue her IV antibiotics. Dictated by BILL Champion for Lauri Anthony MD cc: BILL Champion MD pt examined, continue tx and follow closely [facility]
[2016-08-21] MEDS: HUMALOG DOSE (PARKWAY) SUBQ SCH ×4 (15:56→23:54)
[2016-08-21] MEDS: XARELTO PO SCH (16:12)
[2016-08-21] MEDS: KLOR-CON PO SCH (21:00)
[2016-08-21] MEDS: CLARITIN PO SCH (21:03)
[2016-08-22] MEDS ORDERED: VANCOMYCIN 1,600 MG in NS 250 ML IV SCH (02:00)
[2016-08-22] MEDS: HUMALOG DOSE (PARKWAY) SUBQ SCH ×6 (05:07→21:47)
[2016-08-22 06:17] LABS: MANUAL DIFF NEEDED? NO
[2016-08-22 06:25] LABS: BASO% 0.2 % (0.0-0.8); EOS# 0.25 X1000 (0.0-0.7); EOS% 2.4 % (0.0-10.0); HEMATOCRIT 35.5 % (37.0-47.0); HEMOGLOBIN 11.4 g/dL (12.0-16.0); IMM GRAN# 0.05 X1000 (0.0-0.04); IMM GRAN% 0.5 % (0.0-0.5); LYMPH# 2.09 X1000 (1.2-3.4); LYMPH% 19.9 % (20.5-51.1); MCH 28.1 PG (27-31); MCHC 32.1 g/dL (33-37); MCV 87.4 FL (81-99); MONO# 0.78 X1000 (0.11-0.59); MONO% 7.4 % (1.7-9.3); MPV 10.6 FL (7.4-10.4); NEUT% 69.6 % (42.2-75.2); PLT 238 X1000 (130-400); RBC 4.06 XMIL (4.2-5.4)
[2016-08-22 06:34] LABS: AGAP 9; BUN 36 mg/dL (8-22); CHLORIDE 92 mmol/L (98-107); COSMO 280; SODIUM 134 mmol/L (136-145); TCO2 33 mmol/L (25-35)
[2016-08-22] MEDS: ISORDIL PO SCH (09:49)
[2016-08-22] MEDS: CULTURELLE PO SCH ×2 (09:49→21:45)
[2016-08-22] MEDS: KLOR-CON PO SCH ×2 (09:49→21:45)
[2016-08-22] MEDS: MUCINEX PO SCH ×2 (09:49→21:45)
[2016-08-22] MEDS: APRESOLINE PO SCH ×2 (09:49→21:45)
[2016-08-22] MEDS: PREDNISONE PO SCH (09:50)
[2016-08-22] MEDS: NORVASC PO SCH ×2 (09:50→21:45)
[2016-08-22] MEDS: PERICOLACE PO SCH ×2 (09:50→21:45)
[2016-08-22] MEDS: LANTUS INSULIN (PARKWAY) SUBQ SCH ×2 (09:50→21:47)
[2016-08-22] MEDS: POTASSIUM CHLORIDE 20 MEQ/SWI 20 MEQ/100 ML IVPB IV SCH ×2 (12:14→15:05)
--- NOTE | 2016-08-22 14:52 | PROGRESS NOTE ---
DATE: 08/22/2016 SUBJECTIVE: The patient has no focal complaints. OBJECTIVE: Vital signs: Blood pressure 148/37, heart rate 65, respiratory rate 18, temperature 98.4 degrees, 100% saturation on 2 L. Cardiovascular: Regular rate and rhythm. Pulmonary: She seems to be having a little bit more work of breathing today, but no rales or wheezing. GI: Soft, nontender, nondistended. Bowel sounds are positive. LABORATORY DATA: Creatinine is down to 0.8. BUN of 36. Potassium is still low at 3 despite daily IV and p.o. supplementation. Hemoglobin and hematocrit are 11 and 35. PROBLEM LIST: 1. Acute kidney injury. Appears to be improved with hydration. We are not giving her any more fluids. 2. Chronic obstructive pulmonary disease. Put her back on her nebulizer treatments scheduled and follow. 3. Diabetes. Appears to be well controlled. 4. Profound hypokalemia. Continue supplementation and follow. She is on b.i.d. supplementation. Will add IV today and follow. 5. Cellulitis of the right foot. She is on vancomycin. We will continue to monitor. 6. Disposition. Plan to likely transfer tomorrow. cc: Lauri Anthony MD
[2016-08-22] MEDS: DUONEB (A & A) INH SCH ×2 (15:27→22:37)
[2016-08-22] MEDS: XARELTO PO SCH (16:41)
[2016-08-22] MEDS: TYLENOL PO PRN (17:45)
[2016-08-22] MEDS: CLARITIN PO SCH (21:45)
[2016-08-23] MEDS ORDERED: POTASSIUM CHLORIDE 20 MEQ/SWI 20 MEQ/100 ML IVPB IV SCH
[2016-08-23] MEDS: HUMALOG DOSE (PARKWAY) SUBQ SCH ×6 (00:42→15:33)
[2016-08-23] MEDS ORDERED: VANCOMYCIN 1,600 MG in NS 250 ML IV SCH ×2 (02:00→14:00)
[2016-08-23] MEDS: DUONEB (A & A) INH SCH ×3 (04:24→15:28)
[2016-08-23 06:53] LABS: HEMATOCRIT 33.4 % (37.0-47.0); HEMOGLOBIN 10.5 g/dL (12.0-16.0); MCH 27.6 PG (27-31); MCHC 31.4 g/dL (33-37); MCV 87.9 FL (81-99); MPV 10.9 FL (7.4-10.4); RBC 3.8 XMIL (4.2-5.4)
[2016-08-23 07:04] LABS: AGAP 11; BUN 27 mg/dL (8-22); CALCIUM 9.2 mg/dL (8.8-10.2); CHLORIDE 97 mmol/L (98-107); COSMO 281; MAGNESIUM 2.3 mg/dL (1.5-2.7); POTASSIUM 3.3 mmol/L (3.5-5.1); SODIUM 137 mmol/L (136-145); TCO2 30 mmol/L (25-35)
[2016-08-23] MEDS: LANTUS INSULIN (PARKWAY) SUBQ SCH (08:50)
[2016-08-23] MEDS: MUCINEX PO SCH (08:51)
[2016-08-23] MEDS: ISORDIL PO SCH (08:51)
[2016-08-23] MEDS: APRESOLINE PO SCH (08:52)
[2016-08-23] MEDS: PERICOLACE PO SCH (08:52)
[2016-08-23] MEDS: CULTURELLE PO SCH (08:52)
[2016-08-23] MEDS: KLOR-CON PO SCH (08:52)
[2016-08-23] MEDS: PREDNISONE PO SCH (08:52)
[2016-08-23] MEDS: NORVASC PO SCH (08:52)
[2016-08-23] MEDS ORDERED: POTASSIUM CHLORIDE 20 MEQ/SWI 20 MEQ/100 ML IVPB IV ONE (09:00)
[2016-08-23] MEDS: TYLENOL PO PRN (09:28)
[2016-08-23] MEDS ORDERED: NS 250 ML ONE (09:33)
[2016-08-23] MEDS ORDERED: KLOR-CON PO ONE (10:33)
--- NOTE | 2016-08-23 13:58 | DISCHARGE SUMMARY ---
ADMISSION DATE: 08/20/2016 DISCHARGE DATE: DISCHARGE DIAGNOSES: 1. Dehydration, acute kidney injury, likely related to diuretic. 2. Right foot cellulitis. 3. Hypokalemia. 4. Generalized weakness. HOSPITAL COURSE: Briefly this is an 85-year-old female who comes in with increasing weakness and shortness of breath. She had recently been treated for pneumonia and I think some CHF exacerbation. She came in with a creatinine of 1.4, BUN of 52, which was increased from discharge, sodium 133, potassium was 2.4. She was placed on gentle hydration. I do not think she had been discharged on diuretics however she came in, was placed on gentle hydration. She did have redness and swelling over the dorsum of her anterior right foot and was empirically placed on vancomycin for cellulitis. She had persistent hypokalemia despite I feel like fairly aggressive supplementation. The next day despite supplementation she went down to 2.3. She was placed on oral and IV potassium, came up to 3 on the and 3.3 on the . Her BUN and creatinine decreased to 27 and 0.7 prior to discharge. She was tolerating p.o. without difficulty. She had mild leukocytosis initially 13 went down at 10.5 and her swelling in her foot also improved. Overall she was felt stable for discharge on the tolerating p.o. without difficulty and she was motivated to go back to her rehab facility. DISCHARGE MEDICATIONS: Tylenol p.r.n., Ventolin q.4, Norvasc 5 b.i.d., doxycycline 100 b.i.d. for 7 days, Mucinex 600 b.i.d., hydralazine 100 b.i.d., Lantus 25 b.i.d., Humalog 5 b.i.d., Imdur 40 daily, lactobacillus b.i.d., Claritin 10 at bedtime, Klor-Con 40 b.i.d. for 2 days then daily for 1 week and then I would recommend checking her BNP and deciding about long-term Lasix, prednisone 10, Xarelto 15 daily, Senokot 1 b.i.d. and trolamine cream. DISCHARGE RECOMMENDATION: Basic metabolic in 1 week to analyze her potassium and decide about long-term potassium therapy. DISCHARGE CONDITION: Stable. TIME SPENT: 32 minute discharge. cc: MD Dr. Jeff Blackwell
[2016-08-23 16:53] VITALS: BP 154/58
--- NOTE | 2016-09-15 02:11 | PROVIDER DOCUMENTATION ---
This chart was entered by Bela Obrien Scribe, acting as scribe for Francisco J Carmona MD. HPI-General Adult - General Chief Complaint: Weakness Stated Complaint: Generalized Weakness Time Seen by Provider: 08/20/16 09:06 Source: patient, EMS Allergies/Adverse Reactions: Patient Allergies Allergy/AdvReac Type Severity Reaction Status Date / Time Iodinated Contrast Media - Allergy Severe ANAPHYLAXIS Verified 07/28/16 20:30 Oral and codeine [Codeine] Allergy Mild NAUSEA/VOMI Verified 07/28/16 20:30 TING Home Medications: Home Medication List Medication Instructions Recorded Confirmed Last Taken Type Acetaminophen [Tylenol] 650 mg PO Q6H PRN PRN 09/08/12 08/20/16 09/08/12 22:00 History Hydralazine [Apresoline] 100 mg PO BID 09/08/12 08/20/16 09/14/15 20:30 History 100 Rivaroxaban [Xarelto] 15 mg PO HS 01/19/13 08/20/16 09/13/15 20:30 History 15 Insulin Glargine [Lantus] 25 unit SUBQ BID 08/10/15 08/20/16 09/14/15 20:30 History 25 Insulin Lispro [Humalog] 5 unit SQ BID 08/10/15 08/20/16 09/14/15 08:30 History 5 Lactobac Cmb #3/Fos/Pantethine 1 each PO BID 08/10/15 08/20/16 09/13/15 16:30 History [Probiotic & Acidophilus Cap] 1 Trolamine Salicylate/Aloe Vera 1 applic TOP TID PRN PRN 08/10/15 08/20/16 Unknown History [Aspercreme 10% Cream] Albuterol Sulfate Inhaler 2 puff INH Q4H PRN PRN #1 inhaler 08/14/15 08/20/16 Unknown Rx [Ventolin Hfa] Guaifenesin [Mucinex] 600 mg PO BID 05/28/16 08/20/16 Unknown History Loratadine [Claritin] 10 mg PO QHS #30 tablet 06/20/16 08/20/16 Unknown Rx Isosorbide Dinitrate 40 mg PO DAILY 07/28/16 08/20/16 08/20/16 09:00 History Sennosides/Docusate Sodium [Senna 1 tab PO BID 07/28/16 08/20/16 Unknown History S Tablet] Amlodipine [Norvasc] 5 mg PO BID tablet 08/09/16 08/20/16 Unknown Rx Prednisone 10 mg PO DAILY 08/20/16 08/20/16 08/19/16 09:00 History Doxycycline 100 mg PO BID #14 tablet 08/23/16 Unknown Rx Potassium Chloride E.r. [Klor-Con] 40 meq PO BID #40 tablet 08/23/16 Unknown Rx - History of Present Illness -Gen Adult Nature of Presenting Problems: 85 yo F presents to the ER with complaint of weakness and increased SOB. Pt states she was discharged from the hospital x1 week ago for pneumonia. States she can't make it more than 3 steps without feeling too weak. Associated Symptoms: reports: shortness of breath, weakness Review of Systems - Adult - REVIEW OF SYSTEMS - ADULT Constitutional: denies: chills, fever Eyes: reports: no symptoms reported Ears, Nose, Mouth & Throat: reports: no symptoms reported Cardiovascular: denies: chest pain, palpitations Respiratory: reports: dyspnea on exertion, shortness of breath. denies: cough, wheezing Gastrointestinal: denies: diarrhea, nausea, vomiting Genitourinary: reports: no symptoms reported Musculoskeletal: reports: no symptoms reported Integumentary: reports: no symptoms reported Neurological: denies: dizziness/vertigo, headache/migraines Psychiatric: reports: no symptoms reported Endocrine: reports: no symptoms reported Hematologic/Lymphatic: reports: no symptoms reported Allergic/Immunologic: reports: no symptoms reported All Other Systems: Reviewed and Negative Past History - Adult - PAST MEDICAL HISTORY-ADULT Review of Records: reports: Nursing Assessment Review, Medications Reviewed Cardiovascular: reports: cardiac disease, A-Fib, HTN, [place], pacemaker Respiratory: reports: COPD, pneumonia Gastrointestinal: reports: GERD Neurological: reports: CVA Endocrine/Immune: reports: Diabetes, thyroid disorder - PRIOR SURGERIES/PROCEDURES Surgical/Procedure History: reports: CABG, pacemaker, hysterectomy, other ( heart cath ) - IMMUNIZATION STATUS Childhood Immunizations: See Nurse Assessment Flu Vaccine: See Nurse Assessment - SOCIAL HISTORY Smoking: non-smoker Physical Exam-General - PHYSICAL EXAM-ADULT Initial Vital Signs Reviewed: Yes - CONSTITUTIONAL General Appearance: alert, no apparent distress - EYES Eyes: PERRL/EOMI, pink conjunctivae - HEAD, EARS, NOSE, MOUTH & THROAT HENMT: normocephalic/atraumatic, normal ENT inspection - NECK Neck: supple, normal inspection - RESPIRATORY Respiratory: no respiratory distress, no accessory muscle use - CARDIOVASCULAR Cardiovascular: normal peripheral pulses, regular rate, rhythm - MUSCULOSKELETAL Back Exam: no CVA tenderness, no vertebral tenderness Extremity: normal gait, normal inspection - SKIN Integumentary: warm/dry, erythema (R foot) - NEUROLOGIC Neurologic: grossly normal, no motor/sensory deficits - PSYCHIATRIC Psych/Mental Status: normal mood/affect, normal thought content, normal thought process, oriented x 3 Progress - PLAN OF CARE/RESULTS Progress/Plan/Lab Results: Orders Category Date Time Status Admit - [facility] Routine AdmDCTranf 08/20/16 10:37 Ordered Admit Patient To Inpatient Status Routine AdmDCTranf 08/21/16 12:00 Ordered Call Admitting on Arrival AT ADMISSION Care 08/20/16 10:38 Completed Daily Weights 0500 Care 08/20/16 23:21 Active FSBS/Accucheck Result Q 4-HR ASSESS Care 08/21/16 15:31 Active Vital Signs Order Q 4-HR ASSESS Care 08/20/16 10:37 Active Case Management Consult Routine Cons 08/20/16 15:50 Active Social Service Consult Routine Cons 08/20/16 15:50 Active Diabetic Diet Diet 08/20/16 10:43 Completed CHEST-2 VIEWS [RAD] Stat Exams 08/20/16 09:11 Completed BASIC METABOLIC PANEL [CHEM] Routine Lab 08/21/16 07:00 Completed BASIC METABOLIC PANEL [CHEM] Routine Lab 08/22/16 05:44 Completed CBC WITH DIFF [HEME] Routine Lab 08/21/16 07:00 Completed CBC WITH DIFF [HEME] Routine Lab 08/22/16 05:44 Completed CBC WITH ELECTRONIC DIFF [HEME] Stat Lab 08/20/16 09:20 Completed CK PROFILE [SP CHEM] Stat Lab 08/20/16 09:20 Completed COMPREHENSIVE METABOLIC PANEL [CHEM] Stat Lab 08/20/16 09:20 Completed MAGNESIUM [CHEM] Routine Lab 08/21/16 07:00 Completed MAGNESIUM [CHEM] Routine Lab 08/22/16 05:44 Completed PRO B-NATRIURETIC PEPTIDE Stat Lab 08/20/16 09:20 Completed 0.9% Sodium Chloride Inj [Ns] 1,000 ml Med 08/20/16 10:37 Discontinued IV 125 mls/hr 0.9% Sodium Chloride Inj [Ns] 500 ml Med 08/21/16 08:45 Discontinued IV 50 mls/hr Acetaminophen [Tylenol] Med 08/21/16 00:12 Discontinued 650 mg PO Q6H PRN PRN Acetaminophen [Tylenol] Med 08/20/16 14:24 Discontinued 650 mg [place] Q6H PRN PRN Albuterol Sulfate Inhaler [Ventolin Hfa] Med 08/20/16 14:24 Discontinued 2 puff INH Q4H PRN PRN Amlodipine [Norvasc] Med 08/20/16 21:00 Discontinued 5 mg PO BID Guaifenesin E.r. [Mucinex] Med 08/20/16 21:00 Discontinued 600 mg PO BID Hydralazine [Apresoline] Med 08/20/16 21:00 Discontinued 100 mg PO BID Insulin Glargine ([place]) [Lantus Insulin ([place])] Med 08/21/16 06:24 Discontinued 25 unit SUBQ BID Insulin Glargine [Lantus] Med 08/20/16 21:00 Discontinued 25 unit SUBQ BID Insulin Lispro Dose ([place]) [Humalog Dose ([place])] Med 08/21/16 08:00 Discontinued 0 dose SUBQ BID CC Insulin Lispro Dose ([place]) [Humalog Dose ([place])] Med 08/20/16 21:00 Discontinued 5 dose SUBQ BID Insulin Lispro Dose ([place]) [Humalog Dose ([place])] Med 08/21/16 15:45 Discontinued See Protocol SUBQ Q4H Isosorbide Dinitrate [Isordil] Med 08/21/16 09:00 Discontinued 40 mg PO DAILY Lactobacillus Rhamnosus GG [Culturelle] Med 08/20/16 21:00 Discontinued 1 each PO BID Loratadine [Claritin] Med 08/20/16 21:00 Discontinued 10 mg PO QHS Pharmacy Order [Vancomycin IV Per Pharmacy] Med 08/20/16 12:30 Discontinued 1 each MISC DIRECTED Potassium Chloride 20 Meq/Swi Med 08/21/16 09:00 Discontinued 20 meq in 100 ml IV Q4H Potassium Chloride E.r. [Klor-Con] Med 08/21/16 21:00 Discontinued 40 meq PO BID Potassium Chloride E.r. [Klor-Con] Med 08/20/16 10:57 Discontinued 40 meq PO NOW ONE Potassium Chloride E.r. [Klor-Con] Med 08/21/16 12:10 Discontinued 60 meq PO NOW ONE Prednisone Med 08/21/16 09:00 Discontinued 10 mg PO DAILY Rivaroxaban [Xarelto] Med 08/20/16 21:00 Discontinued 15 mg PO HS Rivaroxaban [Xarelto] Med 08/21/16 17:00 Discontinued 15 mg PO WSUPPER Sennosides/Docusate Sodium [Pericolace] Med 08/20/16 21:00 Discontinued 1 each PO BID Trolamine Salicylate 10% Cream [Aspercreme] Med 08/20/16 14:24 Discontinued 1 gm TOP TID PRN PRN Vancomycin 1,600 mg Med 08/22/16 02:00 Discontinued 0.9% Sodium Chloride Inj [Ns] 250 ml IV Q60H Vancomycin 1,600 mg Med 08/23/16 02:00 Discontinued 0.9% Sodium Chloride Inj [Ns] 250 ml IV Q60H Vancomycin 1,800 mg Med 08/20/16 14:00 Discontinued 0.9% Sodium Chloride Inj [Ns] 500 ml IV ONCE Oxygen Device Routine Oth 08/20/16 10:42 Completed Telemetry [OM.EQ] Routine Oth 08/20/16 10:37 Active EKG [EKG] Routine Ther 08/20/16 09:11 Draft Transfer/Admit Order [TRANSFER] Routine Transfer 08/20/16 10:44 Completed Result Diagrams: 08/23/16 05:40 08/23/16 05:40 - EKG 1 Time of EKG reading by physician:: 10:02 EKG Read and Signed by:: Francisco J Carmona EKG Interpretation (*Must complete 3 of following elements*): Abnormal Rate: 65 Rhythm: ventricular paced rhythm [place]: normal QRS: normal [place] Interval: normal ST Wave: normal 2 Time of EKG reading by physician:: 10:05 EKG Read and Signed by:: Francisco J Carmona EKG Interpretation (*Must complete 3 of following elements*): Abnormal Rate: 65 Rhythm: atrial sensed ventricular paced rhythm with prolonged AV conduction [place]: normal QRS: normal [place] Interval: normal ST Wave: normal - XRAY 1 XRAY Study: Chest Impression: Abnormal (cardiomegaly and pulmonary vascular congestion but otherwise NAD, per radiologist) - CONSULTS/PCP/HOSPITALIST Notification #1 *Consult/PCP/Hospitalist*: Dr. Anthony Time Discussed: 10:32 Consult Disposition: Admit Departure - Departure Date of Disposition Decision: 08/20/16 Time of Disposition Decision: 10:34 DIAGNOSIS: Dehydration, Hypokalemia Disposition: ADMITTED INPATIENT 09 Certified Medical Emergency: Emergent Condition: Stable - Critical Care Note This patient required my direct & personal management of CC.: No This chart was documented by the indicated scribe, (Bela Obrien Scribe) and accurately reflects the services I performed and decisions made by me, Francisco J Carmona MD, as attested by the provider's signature.
== END 2016-08-23 17:35 ==
LOC: SUPCPDRO → P.ED 09:03 → P.MEDSURG 11:03 → INTOOBSV 11:03
PROVIDERS: ATTEND Internal Medicine

== ENCOUNTER 2018-09-19 11:29 | Inpatient (IN) ==
--- NOTE | 2018-09-19 13:08 | Diag Imaging Result Doc PS360 ---
CHEST-PORTABLE - 09/19/2018 INDICATION: SOB COMPARISON: 05/08/2017 FINDINGS: There is ill-defined airspace opacification in the lingula obscuring the left heart border consistent with a lingular pneumonia. Stable mitral valve replacement and sternotomy wires. Stable pacemaker. Stable cardiomegaly and mild pulmonary vascular congestion. IMPRESSION: Lingular infiltrate compatible with pneumonia. Electronically signed by Bruno Ocasio 09/19/2018 1:06 PM
[2018-09-19 13:19] LABS: BE 4.2 mmoll (-3.0-3.0); BLOOD TYPE ARTERIAL; O2(CT) 17.7 mL/dL (15.0-23.0); O2HB 90.2 % (95.0-99.0); PO2(98.6) 59 mmHg (60-100); SAMPLE BLOOD; SAO2 92.6 % (95.0-100.0); pH(98.6) 7.36 (7.35-7.45)
[2018-09-19 13:22] LABS: BASO# 0.02 X1000 (0.0-0.2); BASO% 0.3 % (0.0-0.8); EOS# 0.17 X1000 (0.0-0.7); EOS% 2.2 % (0.0-10.0); HEMATOCRIT 35.9 % (37.0-47.0); HEMOGLOBIN 11.5 g/dL (12.0-16.0); IMM GRAN# 0.01 X1000 (0.0-0.04); IMM GRAN% 0.1 % (0.0-0.5); LYMPH# 1.63 X1000 (1.2-3.4); LYMPH% 21.3 % (20.5-51.1); MCV 87.6 FL (81-99); MONO# 0.75 X1000 (0.11-0.59); MONO% 9.8 % (1.7-9.3); MPV 10.9 FL (7.4-10.4); NEUT# 5.07 X1000 (1.4-6.5); NEUT% 66.3 % (42.2-75.2); PLT 187 X1000 (130-400); RDW 14.9 % (11.5-14.5); WBC 7.65 X1000 (4.8-10.8)
[2018-09-19 13:23] LABS: ALLEN TEST YES; MODALITY CANNULA; PCO2(98.6) 55 mmHg (35-45)
[2018-09-19 13:26] LABS: INR 1.69; PROTIME 20.7 Seconds (11.0-16.0)
[2018-09-19 13:27] LABS: PTT 40.9 Seconds (22.3-41.8)
[2018-09-19 13:29] LABS: AGAP 10; BUN 11 mg/dL (8-22); CALCIUM 8.2 mg/dL (8.8-10.2); CHLORIDE 97 mmol/L (98-107); COSMO 278; CREATININE 0.7 mg/dL (0.5-0.9); ESTIMATED GFR > 60; GLUCOSE 226 mg/dL (70-104); POTASSIUM 4.1 mmol/L (3.5-5.1); SODIUM 136 mmol/L (136-145); TCO2 28 mmol/L (25-35)
[2018-09-19 13:42] LABS: INFLUENZA A NEGATIVE (NEGATIVE); INFLUENZA B NEGATIVE (NEGATIVE)
--- NOTE | 2018-09-19 14:07 | EKG Report ---
Test Performed on : 09/19/2018 12:48:06 PM Test Reason : SOB Blood Pressure : / mmHG Vent. Rate : 065 BPM Atrial Rate : 073 BPM P-R Int : 000 ms QRS Dur : 184 ms QT Int : 530 ms P-R-T Axes : 000 040 112 degrees QTc Int : 551 ms Ventricular-paced rhythm Abnormal ECG When compared with ECG of 07-MAY-2017 23:09, No significant change was found Unconfirmed Result
[2018-09-19] MEDS ORDERED: ROCEPHIN 1 GM in NS 50 ML IV ONE (15:50)
[2018-09-19 16:03] LABS: BILIRUBIN URINE NEGATIVE (NEGATIVE); BLOOD URINE TRACE (NEGATIVE); CLARITY SL. CLOUDY (CLEAR); COLOR YELLOW; GLUCOSE URINE NEGATIVE (NEGATIVE); KETONE URINE NEGATIVE (NEGATIVE); LEUKOCYTES URINE 2+ (NEGATIVE); NITRITE URINE NEGATIVE (NEGATIVE); PROTEIN URINE NEGATIVE (NEGATIVE); UROBILINOGEN URINE NORMAL
--- NOTE | 2018-09-19 16:06 | PROVIDER DOCUMENTATION ---
This chart was entered by Qing Cao Scribe, acting as scribe for Francois Jones MD. HPI-Respiratory General - General Chief Complaint: Shortness of Breath Stated Complaint: Weakness Time Seen by Provider: 09/19/18 12:19 Source: patient Allergies/Adverse Reactions: Patient Allergies Allergy/AdvReac Type Severity Reaction Status Date / Time Iodinated Contrast- Oral and Allergy Severe ANAPHYLAXIS Verified 09/19/18 12:09 IV Dye codeine [Codeine] Allergy Mild NAUSEA/VOMI Verified 09/19/18 12:09 TING Home Medications: Home Medication List Medication Instructions Recorded Confirmed Last Taken Type Insulin Glargine [Lantus] 45 unit SUBQ DAILY 08/10/15 09/19/18 09/14/15 20:30 History 25 Insulin Lispro [Humalog] 0 units SQ 4XDAY 08/10/15 09/19/18 09/14/15 08:30 History 5 Albuterol Sulfate Inhaler 2 puff INH Q4H PRN PRN #1 inhaler 08/14/15 09/19/18 Unknown Rx [Ventolin Hfa] Prednisone 5 mg PO DAILY 08/20/16 09/19/18 08/19/16 09:00 History Carvedilol [Coreg] 6.25 mg PO BID 05/07/17 09/19/18 Unknown History Furosemide [Lasix] 80 mg PO DAILY 05/07/17 09/19/18 Unknown History Acetaminophen [Tylenol] 325 mg PO QHS 09/19/18 09/19/18 Unknown History Amlodipine [Norvasc] 2.5 mg PO DAILY 09/19/18 09/19/18 Unknown History Escitalopram Oxalate [Lexapro] 10 mg PO DAILY 09/19/18 09/19/18 Unknown History Insulin Glargine,Hum.rec.anlog 28 units SQ QHS 09/19/18 09/19/18 Unknown History [Lantus Solostar] Insulin Lispro [Humalog] 5 units SQ BID 09/19/18 09/19/18 Unknown History Lorazepam 0.5 mg PO TID 09/19/18 09/19/18 Unknown History Metformin [Glucophage] 500 mg PO DAILY 09/19/18 09/19/18 Unknown History Potassium Chloride E.r. [Klor-Con] 30 meq PO DAILY 09/19/18 09/19/18 Unknown History - History of Present Illness-Resp Nature of Presenting Problem: 87 yof c/o sob and cough for few days. pt is resident at rest home and has been sick w/dbl pneumonia multiple times since being in rest home. pt has been on 2L o2 there. pt has hx of chf, has pacemaker, hole in heart and copd. pt seen by dr. aguilar, group home Review of Systems - Adult - REVIEW OF SYSTEMS - ADULT Constitutional: reports: no symptoms reported Eyes: reports: no symptoms reported Ears, Nose, Mouth & Throat: reports: no symptoms reported Cardiovascular: reports: no symptoms reported Respiratory: reports: see HPI, cough, shortness of breath. denies: dyspnea on exertion, excessive sputum production, wheezing Gastrointestinal: reports: no symptoms reported Genitourinary: reports: no symptoms reported Musculoskeletal: reports: no symptoms reported Integumentary: reports: no symptoms reported Neurological: reports: no symptoms reported Psychiatric: reports: no symptoms reported Endocrine: reports: no symptoms reported Hematologic/Lymphatic: reports: no symptoms reported Allergic/Immunologic: reports: no symptoms reported All Other Systems: Reviewed and Negative Past History - Adult - PAST MEDICAL HISTORY-ADULT Review of Records: reports: Old Records Reviewed, Nursing Assessment Review, Medications Reviewed, Social history reviewed & non-contributory. Major Childhood Illnesses: reports: denies history Cardiovascular: reports: cardiac disease, A-Fib, HTN, CT, pacemaker Respiratory: reports: COPD, pneumonia Gastrointestinal: reports: GERD Obstetrical/Gynecological: reports: denies history Genitourinary: reports: denies history Musculoskeletal: reports: denies history Neurological: reports: CVA Endocrine/Immune: reports: Diabetes, thyroid disorder Other Conditions: reports: denies history - PRIOR SURGERIES/PROCEDURES Surgical/Procedure History: reports: CABG, pacemaker, hysterectomy, other (heart cath ) - IMMUNIZATION STATUS Childhood Immunizations: See Nurse Assessment Flu Vaccine: See Nurse Assessment - FAMILY HISTORY Family History: reviewed, not pertinent - SOCIAL HISTORY Smoking: non-smoker Substance Use: none/never Physical Exam-General - PHYSICAL EXAM-ADULT Initial Vital Signs Reviewed: Yes - CONSTITUTIONAL General Appearance: appears well, alert, no apparent distress, obese. negative: slow to respond, obtunded, combative - EYES Eyes: PERRL/EOMI, pink conjunctivae - HEAD, EARS, NOSE, MOUTH & THROAT HENMT: normocephalic/atraumatic, moist mucous membranes, normal ENT inspection - NECK Neck: non-tender, full range of motion, supple, normal inspection - RESPIRATORY Respiratory: chest non-tender, lungs clear, normal breath sounds, no pleuratic chest pain, no respiratory distress, other (on o2 currently). negative: decreased breath sounds, accessory muscle use, wheezing - CARDIOVASCULAR Cardiovascular: normal peripheral pulses, regular rate, rhythm, no edema, no gallop, no JVD, systolic murmur (may be ventricular defect). negative: no murmur, bradycardia, tachycardia - GASTROINTESTINAL (ABDOMEN) Abdominal Exam: normal bowel sounds, non tender, soft - LYMPHATIC Lymphatic: no adenopathy - MUSCULOSKELETAL Back Exam: normal inspection, no CVA tenderness, no vertebral tenderness Extremity: normal range of motion, non-tender, normal inspection, no calf tenderness, pedal edema (+2 bilat LE chronic). negative: no pedal edema Peripheral Pulses: radial (R): 2+, radial (L): 2+ - SKIN Integumentary: normal color, normal turgor, warm/dry - NEUROLOGIC Neurologic: grossly normal, no motor/sensory deficits - PSYCHIATRIC Psych/Mental Status: normal mood/affect, normal thought content, normal thought process, oriented x 3 - HEART Score HEART Score: History: Slightly Suspicious HEART Score: ECG: Non-Specific Repolarization Disturbance/LBBB/PM HEART Score: Age: > or = 65 Years HEART Score: Risk Factors for Atherosclerotic Disease: 1 or 2 Risk Factors HEART Score: Troponin: < or = Normal Limit Total HEART Score:: 4 Progress - PLAN OF CARE/RESULTS Progress/Plan/Lab Results: Vital Signs - 8 hr 09/19/18 11:32 Temperature 98.4 F Pulse Rate 65 Respiratory Rate 22 Blood Pressure 213/76 O2 Sat by Pulse Oximetry 99 Laboratory Results - last 24 hr 09/19/18 09/19/18 09/19/18 12:55 12:55 12:55 WBC 7.65 RBC 4.10 L Hgb 11.5 L Hct 35.9 L MCV 87.6 MCH 28.0 MCHC 32.0 L RDW Std Deviation 14.9 H Plt Count 187 MPV 10.9 H Immature Gran % (Auto) 0.1 Neut % (Auto) 66.3 Lymph % (Auto) 21.3 Clinch % (Auto) 9.8 H Eos % (Auto) 2.2 Baso % (Auto) 0.3 Immature Gran # (Auto) 0.01 Neut # (Auto) 5.07 Lymph # (Auto) 1.63 Clinch # (Auto) 0.75 H Eos # (Auto) 0.17 Baso # (Auto) 0.02 PT INR PTT (Actin FS) Specimen Type Sample Site pH pCO2 pO2 HCO3 Base Excess Oxyhemoglobin ABG O2 Sat (Calculated) ABG O2 Saturation ABG Carboxyhemoglobin ABG Methemoglobin Perico Test A-a O2 Difference Total Hemoglobin Lactate Blood Gas Modality FiO2 % Sodium 136 Potassium 4.1 Chloride 97 L Carbon Dioxide 28 Anion Gap 10 BUN 11 Creatinine 0.7 Estimated GFR/1.73 m2 > 60 BUN/Creatinine Ratio 16 Glucose 226 H Calculated Osmolality 278 Calcium 8.2 L Magnesium Troponin T [id number]-A-Gtqyyeweucl Pept Plasma Lactate 1.0 Influenza A (Rapid) Influenza B (Rapid) 09/19/18 09/19/18 09/19/18 12:55 12:55 12:55 WBC RBC Hgb Hct MCV MCH MCHC RDW Std Deviation Plt Count MPV Immature Gran % (Auto) Neut % (Auto) Lymph % (Auto) Clinch % (Auto) Eos % (Auto) Baso % (Auto) Immature Gran # (Auto) Neut # (Auto) Lymph # (Auto) Clinch # (Auto) Eos # (Auto) Baso # (Auto) PT 20.7 H INR 1.69 PTT (Actin FS) 40.9 Specimen Type Sample Site pH pCO2 pO2 HCO3 Base Excess Oxyhemoglobin ABG O2 Sat (Calculated) ABG O2 Saturation ABG Carboxyhemoglobin ABG Methemoglobin Perico Test A-a O2 Difference Total Hemoglobin Lactate Blood Gas Modality FiO2 % Sodium Potassium Chloride Carbon Dioxide Anion Gap BUN Creatinine Estimated GFR/1.73 m2 BUN/Creatinine Ratio Glucose Calculated Osmolality Calcium Magnesium 2.0 Troponin T Pwo-I-Sjwlnyaazwf Pept 236 Plasma Lactate Influenza A (Rapid) Influenza B (Rapid) 09/19/18 09/19/18 09/19/18 12:55 12:57 13:02 WBC RBC Hgb Hct MCV MCH MCHC RDW Std Deviation Plt Count MPV Immature Gran % (Auto) Neut % (Auto) Lymph % (Auto) Clinch % (Auto) Eos % (Auto) Baso % (Auto) Immature Gran # (Auto) Neut # (Auto) Lymph # (Auto) Clinch # (Auto) Eos # (Auto) Baso # (Auto) PT INR PTT (Actin FS) Specimen Type ARTERIAL Sample Site L RADIAL pH 7.36 pCO2 55 H* pO2 59 L HCO3 28.0 H Base Excess 4.2 H Oxyhemoglobin 90.2 L ABG O2 Sat (Calculated) 17.7 ABG O2 Saturation 92.6 L ABG Carboxyhemoglobin 1.50 ABG Methemoglobin 1.0 Perico Test YES A-a O2 Difference 22.0 Total Hemoglobin 14.0 Lactate 0.90 Blood Gas Modality CANNULA FiO2 % 21.0 Sodium Potassium Chloride Carbon Dioxide Anion Gap BUN Creatinine Estimated GFR/1.73 m2 BUN/Creatinine Ratio Glucose Calculated Osmolality Calcium Magnesium Troponin T < 0.010 [id number]-Zjdpayvcxgr Pept Plasma Lactate Influenza A (Rapid) NEGATIVE Influenza B (Rapid) NEGATIVE Orders Category Date Time Status Saline Loc NOW Care 09/19/18 12:28 Active CHEST-PORTABLE [RAD] Stat Exams 09/19/18 12:29 Completed ABG [RESP] Routine Lab 09/19/18 13:02 Completed BASIC METABOLIC PANEL [CHEM] Stat Lab 09/19/18 12:55 Completed BLOOD CULTURE [BLDCUL] Stat Lab 09/19/18 12:55 Ordered CBC WITH ELECTRONIC DIFF [HEME] Stat Lab 09/19/18 12:[address] Stat Lab 09/19/18 12:57 Completed LACTATE, PLASMA [CHEM] Stat Lab 09/19/18 12:55 Completed MAGNESIUM [CHEM] Stat Lab 09/19/18 12:55 Completed PRO B-NATRIURETIC PEPTIDE Stat Lab 09/19/18 12:55 Completed PROTIME WITH INR [COAG] Stat Lab 09/19/18 12:55 Completed PTT [COAG] Stat Lab 09/19/18 12:55 Completed TROPONIN T Stat Lab 09/19/18 12:[address] W/POSS RFLX CULT [URINALYSIS] Stat Lab 09/19/18 15:44 Received CefTRIAXONE [Rocephin] 1 gm Med 09/19/18 15:50 Active 0.9% Sodium Chloride Inj [Ns] 50 ml IV NOW EKG [EKG] Stat Ther 09/19/18 12:28 Draft Result Diagrams: 09/19/18 12:55 09/19/18 12:55 - REASSESSMENT Reassessment #1 Time Reassessed: 15:59 Status: improving (SPEAKS IN FULL SENTENCES ON 3 LITER NASAL O2, PT SUSPECTED SHE HAD ANOTHER PNEUMONIA) - EKG 1 Time of EKG reading by physician:: 12:48 EKG Read and Signed by:: Francois Jones EKG Interpretation (*Must complete 3 of following elements*): Abnormal Rate: 65 Rhythm: ventricukar-paced rhythm Snover: normal QRS: normal ST Wave: normal - XRAY 1 XRAY Study: Chest ( CHEST-PORTABLE - 09/19/2018 INDICATION: SOB COMPARISON: 05/08/2017 FINDINGS: There is ill-defined airspace opacification in the lingula obscuring the left heart border consistent with a lingular pneumonia. Stable mitral valve replacement and sternotomy wires. Stable pacemaker. Stable cardiomegaly and mild pulmonary vascular congestion. IMPRESSION: Lingular infiltrate compatible with pneumonia. Electronically signed by Bruno Ocasio 09/19/2018 1:06 PM) Impression: Abnormal, See EMR Report Departure - Departure Date of Disposition Decision: 09/19/18 Time of Disposition Decision: 16:00 DIAGNOSIS: Pneumonia, SOB (shortness of breath), COPD exacerbation Disposition: ADMITTED INPATIENT 09 Certified Medical Emergency: Emergent Condition: Stable Referrals and Follow-Ups: Boby Aguilar III, MD [Primary Care Provider] - - Critical Care Note This patient required my direct & personal management of CC.: No Attestation - Physician/ PIERCE Attestation Patient care was provided by Advanced Practice Provider:: No The physician spent face to face time with patient:: Yes Advanced Practice Provider documentation review:: Supervising physician onsite and consulted in the evaluation and care of this patient. The physician did have a face to face encounter with the patient. This chart was documented by the indicated scribe, (Qing Cao Scribe) and accurately reflects the services I performed and decisions made by me, Francois Jones MD, as attested by the provider's signature.
[2018-09-19 16:14] LABS: URINE SOURCE CLEAN CATCH
[2018-09-19 16:15] LABS: URINE WBC 20-40 /HPF (<10)
[2018-09-19 16:16] LABS: URINE BACTERIA 3+ /HFP; URINE CAST NONE SEEN /LPF; URINE CRYSTAL NONE SEEN /HPF; URINE EPITHELIAL CELLS >10 /HPF (<10); URINE RBC <10 /HPF (<10); URINE YEAST NONE SEEN /HPF
--- NOTE | 2018-09-19 18:42 | HISTORY AND PHYSICAL ---
PRIMARY CARE PHYSICIAN: Dr. Boby Aguilar. CHIEF COMPLAINT: Shortness of breath. HISTORY OF PRESENT ILLNESS: This is an 87-year-old female with a prior history of diabetes mellitus type 2, COPD, atrial fibrillation, hypertension, coronary artery disease, who presents to the emergency room from her extended care facility. She is on 2 L of oxygen continuously. On arrival to the emergency room, she did have an O2 saturation of 99% on 2 L nasal cannula. The patient is a difficult historian. She is unable to completely give history. She knows that she lives in "an old folks home with other old folks," but she does not remember the name of the place. PAST MEDICAL HISTORY: 1. COPD on home O2. 2. Diabetes mellitus type 2. 3. Atrial fibrillation. 4. Hypertension. 5. Coronary artery disease status post [place]. 6. History of cerebrovascular accident. 7. Gastroesophageal reflux disease. 8. Hypothyroid. PAST SURGICAL HISTORY: Pacemaker placement, coronary artery bypass graft and hysterectomy. SOCIAL HISTORY: She is a resident at an extended care facility. She denies alcohol, tobacco, or illicit drug use. ALLERGIES: Iodine contrast oral and IV, which causes anaphylaxis and codeine which causes nausea, vomiting. HOME MEDICATIONS: A list will be obtained by the nursing staff and once verified, we will review and restart as appropriate. REVIEW OF SYSTEMS: Discussed with patient with pertinent positives stated in the HPI. She denies any syncope, dizziness, chest pain, palpitations, any nausea, vomiting, diarrhea, constipation, any black or bloody vomitus or stools, hematuria, dysuria, frequency or urgency. PHYSICAL EXAMINATION: GENERAL: This is an 87-year-old female who is lying in the stretcher in the emergency room in no distress. VITAL SIGNS: Blood pressure is 186/74 with a heart rate of 71, respirations are 18, temperature is 98.6 degrees with O2 saturation ranging from 97 to 99% on 2 L nasal cannula. CARDIOVASCULAR: She is at V-paced rhythm with no ectopy. S1 and S2 are appreciated. She does have a 1 to 2/6 systolic murmur. She has bilateral lower extremity edema with peripheral pulses palpable x4 extremities. PULMONARY: Lungs are clear, diminished throughout. Chest rises and falls symmetric with respiration. Chest wall is nontender to palpation. GASTROINTESTINAL: Abdomen is soft, nontender, nondistended with bowel sounds in all 4 quadrants. NEUROLOGIC: She is alert. She is oriented to the fact she is in the hospital. She knows her name, her birthday, and she knows she lives in an old folks home. LABS: WBC is 7.6 with hemoglobin 11.5, hematocrit 35.9, and platelets of 187,000. Sodium is 136, potassium 4.1, BUN 11, creatinine 0.7 with a glucose of 226. Urinalysis is consistent with contamination with greater than 10 epithelial cells, 2+ white blood cells. Urine culture will be pending. Blood cultures are pending. Chest x-ray reveals lingular infiltrate compatible with pneumonia. influenza A and B were both negative. ASSESSMENT AND PLAN: 1. Left lingular pneumonia. 2. Shortness of breath. 3. Chronic obstructive pulmonary disease acute on chronic exacerbation. 4. Increasing lower extremity edema despite increase in Lasix. The patient will be admitted to the medical-surgical floor placed on telemetry. Continue with supplemental oxygen. DuoNeb q.4 hours as needed for wheezing and shortness of breath. Continue home medicines once identified as appropriate. Pattern blood glucose with sliding scale insulin. Trend troponin CBC, CMP in the morning. We will place a Skelton catheter for accurate I and O and give Lasix 40 mg IV b.i.d. and then reassess in the morning. Further treatments pending hospital course. Dictated by BILL Menezes for Esequiel Yuen MD cc: BILL Menezes MD [facility]
[2018-09-19] MEDS: DUONEB (A & A) INH SCH ×2 (19:48→23:31)
[2018-09-19] MEDS: LASIX IV SCH (20:10)
[2018-09-19] MEDS: ZITHROMAX PO SCH (20:10)
--- NOTE | 2018-09-19 20:16 | HISTORY AND PHYSICAL ---
ADDENDUM: Patient seen and examined by myself. Full note dictated and discussed with nurse practitioner. Patient presented to the hospital with increased shortness of breath, cough and congestion, subsequently was diagnosed with pneumonia. Currently, she is awake and alert. She is in minimal respiratory distress. We will admit her to the hospital, continue her home medications for her diabetes, blood pressure. We will place her on antibiotics, breathing treatments, oxygen, and we will follow. Please see full note. cc: Esequiel Yuen MD
[2018-09-20] MEDS: DUONEB (A & A) INH SCH ×6 (04:03→23:04)
[2018-09-20] MEDS: LASIX IV SCH (06:52)
[2018-09-20 07:00] LABS: AGAP 10; BUN 9 mg/dL (8-22); CALCIUM 8.2 mg/dL (8.8-10.2); CHLORIDE 100 mmol/L (98-107); COSMO 283; CREATININE 0.7 mg/dL (0.5-0.9); ESTIMATED GFR > 60; GLUCOSE 191 mg/dL (70-104); POTASSIUM 3.6 mmol/L (3.5-5.1); SODIUM 140 mmol/L (136-145); TCO2 31 mmol/L (25-35)
[2018-09-20 07:32] LABS: BASO# 0.02 X1000 (0.0-0.2); BASO% 0.3 % (0.0-0.8); EOS# 0.14 X1000 (0.0-0.7); EOS% 1.8 % (0.0-10.0); HEMATOCRIT 34.7 % (37.0-47.0); IMM GRAN# 0.01 X1000 (0.0-0.04); IMM GRAN% 0.1 % (0.0-0.5); LYMPH# 1.58 X1000 (1.2-3.4); LYMPH% 20.7 % (20.5-51.1); MCH 27.8 PG (27-31); MCHC 31.7 g/dL (33-37); MCV 87.6 FL (81-99); MONO# 0.74 X1000 (0.11-0.59); MONO% 9.7 % (1.7-9.3); MPV 11.2 FL (7.4-10.4); NEUT# 5.16 X1000 (1.4-6.5); NEUT% 67.4 % (42.2-75.2); PLT 190 X1000 (130-400); RBC 3.96 XMIL (4.2-5.4); WBC 7.65 X1000 (4.8-10.8)
[2018-09-20] MEDS: NORVASC PO SCH (08:22)
[2018-09-20] MEDS: ZITHROMAX PO SCH (08:22)
[2018-09-20] MEDS: KLOR-CON PO SCH (08:23)
[2018-09-20] MEDS: COREG PO SCH ×2 (08:23→20:30)
[2018-09-20] MEDS: LASIX PO SCH (08:23)
[2018-09-20] MEDS: GLUCOPHAGE PO SCH (08:23)
[2018-09-20] MEDS: ATIVAN PO SCH ×3 (08:23→16:59)
[2018-09-20] MEDS: HUMALOG (PARKWAY) SUBQ SCH ×4 (08:24→20:30)
[2018-09-20] MEDS: LEXAPRO PO SCH (08:24)
[2018-09-20] MEDS: PREDNISONE PO SCH (08:24)
[2018-09-20] MEDS: ROCEPHIN 1 GM in NS 50 ML IV SCH (16:59)
--- NOTE | 2018-09-20 20:01 | PROGRESS NOTE ---
DATE: 09/20/2018 SUBJECTIVE: The patient states she is short of breath and her legs are swelling; however, she is refusing Lasix because she states it makes her pee all the time, and she also is refusing Skelton catheter. OBJECTIVE: Temperature 98.7 degrees, pulse [*]respiratory 18, BP 154/53.General: The patient is an obese female who is in minimal to mild respiratory distress. She is getting up out of the bed with her feet hanging over the edge. HEENT: Normocephalic. Neck supple. CV: Regular rate. No appreciable murmurs. Chest: Decreased but equal breath sounds bilaterally. No current crackles. No wheezing. Positive rhonchi. Abdomen is soft, obese, nondistended. Extremities: Moves all extremities. She does have trace edema in her bilateral lower extremities. Neurologic: No focal changes. ASSESSMENT: 1. Left lingular pneumonia. 2. Shortness of breath. 3. Chronic obstructive pulmonary disease. 4. [*]others. PLAN: We will continue the patient in the hospital today. Continue antibiotics and oxygen. We will not start Lasix as the patient has declined this, and we will follow. cc: Esequiel Yuen MD
[2018-09-20] MEDS ORDERED: TYLENOL PO SCH (21:00)
[2018-09-21] MEDS: DUONEB (A & A) INH SCH ×5 (03:40→22:58)
[2018-09-21] MEDS: HUMALOG (PARKWAY) SUBQ SCH ×3 (06:12→16:32)
[2018-09-21] MEDS: GLUCOPHAGE PO SCH (08:39)
[2018-09-21] MEDS: ATIVAN PO SCH ×3 (08:39→16:32)
[2018-09-21] MEDS: PREDNISONE PO SCH (08:39)
[2018-09-21] MEDS: COREG PO SCH (08:39)
[2018-09-21] MEDS: NORVASC PO SCH (08:39)
[2018-09-21] MEDS: KLOR-CON PO SCH (08:39)
[2018-09-21] MEDS: LEXAPRO PO SCH (08:39)
[2018-09-21] MEDS: ZITHROMAX PO SCH (08:39)
[2018-09-21] MEDS: LASIX PO SCH (08:40)
[2018-09-21 15:54] VITALS: BP 142/59
[2018-09-21] MEDS: ROCEPHIN 1 GM in NS 50 ML IV SCH (16:32)
--- NOTE | 2018-09-21 16:41 | DISCHARGE SUMMARY ---
ADMISSION DATE: 09/19/2018 DISCHARGE DATE: 09/21/2018 DIAGNOSES: 1. Left lingular pneumonia. 2. Shortness of breath. 3. Chronic obstructive pulmonary disease on home O2. 4. Diabetes mellitus type 2. 5. History of atrial fibrillation. 6. Hypertension. 7. Hypothyroid. 8. History of coronary artery disease. DIAGNOSTICS: Chest x-ray reveals lingular infiltrate compatible with pneumonia. MICROBIOLOGY: 1. Blood cultures x2 revealed no growth after 48 hours. 2. Urine culture revealed mixed arash. HOSPITAL COURSE: Ms Madrigal presented to the emergency room after being short of breath and was found to have a left lingular pneumonia. Blood cultures have returned negative. She has remained afebrile. She was initially treated with antibiotic coverage of Rocephin and azithromycin and she will be discharged on azithromycin and Omnicef. The patient did have some lower extremity edema which is persistent. She has refused Lasix because it makes her pee all the time and she refused a Skelton catheter while in the hospital. DISCHARGE PHYSICAL EXAM: Vital Signs: Blood pressure is 142/59 with heart rate of 66, respirations are 20, temperature 98.5 degrees oral with O2 saturations 96-98% on 2 L nasal cannula. General: This is a 87-year-old female who is sitting up in the bedside in no distress. Cardiovascular: Regular rate and rhythm. S1, S2 appreciated. She does have some lower extremity edema which is trace. Calves are nontender bilateral. Peripheral pulses are palpable x4 extremities. Pulmonary: Breath sounds are clear with no increased work of breathing noted. Chest rises and falls symmetrically with respiration. Gastrointestinal: Soft, nontender, nondistended. Bowel sounds in all 4 quadrants. DISCHARGE MEDICATIONS: 1. Prednisone 5 mg p.o. daily. 2. Klor-Con 20 mEq p.o. daily. 3. Metformin 500 mg p.o. daily. 4. Ativan 0.5 p.o. t.i.d. 5. Lantus insulin 28 units subcutaneous at bedtime. 6. Lantus 45 units subcutaneous daily. 7. Lasix 80 mg p.o. daily. 8. Lexapro 10 mg p.o. daily. 9. Omnicef 300 mg p.o. b.i.d. for 5 days. 10. Zithromax 250 mg p.o. daily for 5 days. 11. Coreg 6.25 p.o. b.i.d. 12. Norvasc 2.5 p.o. daily. 13. DuoNeb q.4 hours. She is being discharged back to her extended care facility under the care of the esthetician and manager medical spa in stable condition. TIME SPENT: Greater than 30 minutes. Dictated by BILL Menezes for Esequiel Yuen MD cc: BILL Menezes MD [facility]
--- NOTE | 2018-09-22 15:45 | DISCHARGE SUMMARY ---
ADMISSION DATE: 09/19/2018 DISCHARGE DATE: 09/21/2018 ADDENDUM: Patient seen and examined by myself, full note dictated and discussed with nurse practitioner. On discharge patient is awake, alert. She is improved. She does have left lingular pneumonia. Placed on antibiotics. Will continue this as an outpatient. Patient noted to have lower extremity edema but she has refused Lasix because it makes her urinate. She has also refused Skelton catheter. Overall, thankfully she is improved and will be discharged back. cc: Esequiel Yuen MD
== END 2018-09-21 20:25 | DRG 194 ==
LOC: SUPCPDRO → P.ED 11:29 → P.MEDSURG 17:49
PROVIDERS: ADMIT Family Medicine
CPT/HCPCS: 71010; 71045; 80048; 81001; 82805; 82948; 83605; 83735; 83880; 84484; 85025; 85610; 85730; 87040; 87088; 87275; 87276; 87804; 93005; 94640; 94761; 96365; 99285; A9270; J0696; J1815; J1940; J7506; J7512; XXXXX